=== PATIENT | female | born 1945 | race Caucasian/White ===

== ENCOUNTER 2022-12-02 09:25 | Outpatient (REF) | payer MEDICARE, SELFPAY ==
[2022-12-02 15:52] LABS: Alanine Aminotransferase 17 U/L (0-31); Albumin Level 3.9 g/dL (3.5-5.0); Alkaline Phosphatase 56 U/L (39-117); Anion Gap 16 (12-20); Aspartate Amino Transferase 12 U/L (5-31); Blood Urea Nitrogen 16 mg/dL (9-16); Calcium 9.6 mg/dL (8.4-10.2); Carbon Dioxide 24 mmol/L (22-29); Chloride 104 mmol/L (96-108); Cholesterol 188 mg/dL; Estimated Glomerular Filt Rate > 60; Glucose Fasting 94 mg/dL (60-99); HDL Cholesterol 43 mg/dL; LDL Cholesterol Calculated 100 mg/dl; Sodium 140 mmol/L (135-145); Total Protein 7.1 g/dL (6.5-8.0); Triglycerides 226 mg/dL
[2022-12-02 16:32] LABS: Bilirubin Direct 0.2 mg/dL (0.0-0.5); Bilirubin Total 0.7 mg/dL (0.0-1.0)
== END 2022-12-02 09:26 | disposition home or self-care (01) ==
LOC: HO.CHCLDS 09:25
PROVIDERS: Visit Provider Student in an Organized Health Care Education/Training Program
DX: Z00.00 Encounter for general adult medical examination without abnormal findings (principal); E11.9 Type 2 diabetes mellitus without complications
CPT/HCPCS: 36415; 80048; 80061; 80076

== ENCOUNTER 2023-06-15 14:19 | Outpatient (REF) | payer MEDICARE, SELFPAY ==
[2023-06-15 16:37] LABS: Appearance Urine Cloudy; Color Urine Yellow; Glucose Urine UA Negative (Negative); Leukocyte Esterase Urine Negative (Negative); Nitrite Urine Negative (Negative); Specific Gravity - Urine >= 1.030 (1.005-1.025); Urine Blood Negative (Negative); Urine Ketones Trace mg/dL (Negative); Urine Protein Trace mg/dL (Neg-Trace)
[2023-06-15 16:57] LABS: Bacteria Urine None Seen (None Seen); Calcium Oxalate Crystals Urine Present; Hyaline Casts Urine 0-2 /LPF (0-2); RBC Urine 0-2 /HPF (0-2); WBC Urine 0-5 /HPF (0-5)
== END 2023-06-15 14:20 | disposition home or self-care (01) ==
LOC: HO.CHCLNP 14:19
PROVIDERS: Visit Provider Family Medicine
DX: R35.0 Frequency of micturition (principal)
CPT/HCPCS: 81001

== ENCOUNTER 2023-09-06 16:15 | Outpatient (REF) | payer MEDICARE, SELFPAY | END 2023-09-06 16:16 | disposition home or self-care (01) | LOC: HO.CHCLNP 16:15 | PROVIDERS: Visit Provider Internal Medicine | DX: E11.9 Type 2 diabetes mellitus without complications (principal) | CPT/HCPCS: 87086 ==

== ENCOUNTER 2024-04-04 08:19 | Outpatient (REF) | payer MEDICARE, SELFPAY ==
[2024-04-04 14:28] LABS: Appearance Urine Clear; Color Urine Dark Yellow; Glucose Urine UA Negative (Negative); Leukocyte Esterase Urine Negative (Negative); Nitrite Urine Negative (Negative); Specific Gravity - Urine 1.025 (1.005-1.025); Urine Blood Negative (Negative); Urine Ketones Trace mg/dL (Negative); Urine Protein Negative (Neg-Trace)
[2024-04-04 14:37] LABS: Bacteria Urine None Seen (None Seen); Calcium Oxalate Crystals Urine Present; Squamous Epithelial Cell Urine 0-2 /HPF (0-2); WBC Urine 0-5 /HPF (0-5)
[2024-04-04 16:11] LABS: Alanine Aminotransferase 14 U/L (0-31); Albumin Level 3.9 g/dL (3.5-5.0); Alkaline Phosphatase 52 U/L (39-117); Anion Gap 11 (12-20); Aspartate Amino Transferase 19 U/L (5-31); Bilirubin Direct 0.1 mg/dL (0.0-0.5); Bilirubin Total 0.4 mg/dL (0.0-1.0); Blood Urea Nitrogen 14 mg/dL (9-16); Calcium 9.1 mg/dL (8.4-10.2); Carbon Dioxide 27 mmol/L (22-29); Chloride 105 mmol/L (96-108); Cholesterol 176 mg/dL (<200); Estimated Glomerular Filt Rate > 60; Glucose Random 96 mg/dL (60-115); HDL Cholesterol 44 mg/dL (>40); LDL Cholesterol Calculated 89 mg/dL (<100); Potassium 4.1 mmol/L (3.3-5.1); Sodium 139 mmol/L (135-145); Triglycerides 216 mg/dL (<150)
== END 2024-04-04 08:20 | disposition home or self-care (01) ==
LOC: HO.CHCLDS 08:19
PROVIDERS: Visit Provider Student in an Organized Health Care Education/Training Program
DX: N39.0 Urinary tract infection, site not specified (principal); E11.9 Type 2 diabetes mellitus without complications; I10 Essential (primary) hypertension
CPT/HCPCS: 36415; 80048; 80061; 80076; 81001

== ENCOUNTER 2025-05-21 11:13 | Outpatient (REF) | payer MEDICARE, SELFPAY ==
--- OUTSIDE RECORDS SUMMARY | 2025-05-21 10:45 | XMS_ITS | Encounter Summary ---
Author Organization [employer] Address [address] [place] [address] [place] [address] Care Team Providers Care Ruffling Machine Operator Name Role Phone Argelia Moore CNP Primary Care Provider [phone] Reason for Referral * Consultation (Routine) - Pending Review Specialty Diagnoses / Procedures Referred By Reginaldo modi Referred To Contact Cardiology Diagnoses Type 2 diabetes mellitus without complication, without long-term current use of insulin (HCC) Syncope and collapse Essential hypertension Hypertriglyceridemia Argelia Moore CNP [address] [place] [address] Phone: tel: fax: Referral ID Status Reason Start Date Expiration Date Visits Requested Visits Authorized [id number] Pending Review Specialty Services Required 5 05/21/2026 1 1 * Imaging (Routine) - Pending Review Specialty Diagnoses / Procedures Referred By Reginaldo modi Referred To Contact Cardiology Diagnoses Syncope and collapse Procedures Transthoracic Echo (TTE) Complete Argelia Moore CNP [address] [place] [address] Phone: tel: fax: [address] Phone: tel: fax: Referral ID Status Reason Start Date Expiration Date Visits Requested Visits Authorized [id number] Pending Review Perform Procedure 5 05/21/2026 1 1 Encounter Details Date Type Department Care Team (Late st Contact Info) Description 05/21/2025 10:45 AM EST Office Visit [facility] [address] [facility] [place] [address] Oscar Zeferinojenniferkathrine, AYDE [address] [place] [address] Angular cheilitis (Primary Dx); Type 2 diabetes mellitus without complication, without long-term current use of insulin (HCC); Syncope and collapse; Intertrigo; Essential hypertension; Hypertriglyceridemia Social History Tobacco Use Types Packs/Day Years Used Date Smoking Tobacco: Never Passive Smoke Exposure: Never Smokeless Tobacco: Never Alcohol Use Standard Drinks/Week Comments Never 0 (1 standard drink = 0.6 oz pur e alcohol) Depression Answer Date Recorded Patient Health Questionnaire-9 Score 0 07/17/2024 Patient Health Questionnaire-9 Score 0 07/17/2024 Last PHQ-9: Questionnaire Data Not on file 0 07/17/2024 Housing Stability Answer Date Recorded What is your housing situation today? I have le saunders 07/17/[address] you li ve. Do you have problems with any of the following? None of the above 07/17/2024 Food Insecurity Answer Date Recorded Within the past 12 months, y ou worried that your food would run out before you got money to buy more: Never True 07/17/2024 Within the past 12 months,th e food you bought just didn't last and you didn't have enough money to get more: Never True Transportation Answer Date Recorded In the past 12 months, has l ack of transportation kept you from medical appts, meetings, work or from getting things needed for daily living? No 07/17/2024 Utilities Answer Date Recorded In the past 12 months, has t he electric, gas, oil or water company threatened to shut off services in your home? No 07/17/2024 Depression Answer Date Recorded Patient Health Questionnaire-2 Score 0 07/17/2024 Internet Access Answer Date Recorded Internet Access Q1 Yes 07/17/2024 Internet Access Q2 Not on file 07/17/2024 Comments No Sex and Gender Information Value Date Recorded Sex Assigned at Female 03/21/2022 10:23 AM EDT Legal Sex Female 10:23 AM EDT Gender Identity Female 03/21/2022 10:23 AM EDT Sexual Orientation Straight 12/13/2022 10 :04 AM EDT documented as of this encounter Last Filed Vital Signs Vital Sign Reading Time Taken Comments Blood Pressure 152/86 05/21/2025 10:17 AM EST Pulse 90 05/21/2025 10:17 AM EST Temperature 36.7 C (98.1 F) 05/21/2025 10:17 AM EST Respiratory Rate 16 05/21/2025 10:17 AM EST Oxygen Saturation 96% 05/21/2025 10:17 AM EST Inhaled Oxygen Concentration - - Weight 65.3 kg (144 lb) 05/21/2025 10:17 AM EST Height 157.5 cm (5' 2 ) 05/21/2025 10:17 AM EST Body Mass Index 26.34 05/21/2025 10:17 AM EST documented in this encounter Progress Notes * Argelia Moore CNP - 05/21/2025 10:45 AM EST Subjective: Michelle Gray is a 80 y.o. 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 Previous PCP Alisa Thakur MD. Interim history: Had R knee surgery in September 2024 Had a fall a couple months ago, denies headstrike, she did have LOC- unsure of duration. No workup was completed, pt declined emergent evaluation. Current concerns: Lips dryness and inflammation x 2-3 weeks. Confirms history of Vit B12 deficiency, she takes daily supplement for this. She reports that she thinks something else is causing this as it is a new issue. She denies an open sores or mucosal involvement. Reports multiple brown spots on both upper extremities was told these were sun spots. She reports sometimes they are itchy, otherwise asymptomatic. She also reports some itching and some skin spots under her breasts. Problem List[1] Surgical History[2] Family History[3] Social History Living situation: has secure housing Diet/exercise: not reported Substance use: denies all substance use. Sexual activity: not reported Mental health: Patient Health Questionnaire-9 Score: 0 (07/17/2024 8:36 AM) Patient Health Questionnaire-2 Score: 0 (07/17/2024 8:36 AM) Thoughts that you would be better off or hurting yourself in some way: Not at all (07/17/2024 8:36 AM) No data recorded No LMP recorded. Patient is postmenopausal. Allergies[4] Review of Systems Vitals: 05/21/25 1017 BP: (!) 152/86 BP Location: Left arm Patient Position: Sitting BP Cuff Size: Adult Pulse: 90 Resp: 16 Temp: 98.1 ??F (36.7 ??C) TempSrc: Oral SpO2: 96% Weight: 144 lb (65.3 kg) Height: 5' 2 (1.575 m) Physical Exam Constitutional: Appearance: Normal appearance. She is normal weight. Cardiovascular: Rate and Rhythm: Normal rate and regular rhythm. Pulses: Normal pulses. Heart sounds: Normal heart sounds. No murmur heard. No friction rub. No gallop. Pulmonary: Effort: Pulmonary effort is normal. No respiratory distress. Breath sounds: Normal breath sounds. No wheezing or rales. Neurological: General: No focal deficit present. Mental Status: She is alert and oriented to person, place, and time. Psychiatric: Mood and Affect: Mood normal. Behavior: Behavior normal. Thought Content: Thought content normal. Judgment: Judgment normal. Assessment & Plan Type 2 diabetes mellitus without complication, without long-term current use of insulin ([facility]) Lab Results Component Value Date HGBA1C 5.7 05/21/2025 Disease course is stable without any episodes of hypoglycemia. Maintenance BMP: ordered Microalbumin: ordered Foot Exam: declined by pt Eye Exam: has appointment scheduled for May Lipid panel: ordered Statin: no ASA: yes NATALY/ARB: yes Treatment Goals: A1c goal: <7% FBG goal: <130 2 hour post prandial goal: <180 Advised Low sugar and Low carb diet. Counseled regarding self-monitoring of blood glucose. Counseled re: potential co-morbidities including cardiovascular disease. Counseled re: potential co-morbidities include neuropathy and retinopathy. Counseled re: potential co-morbidities include nephropathy. Orders: POCT A1c POCT glucose manually resulted ([id number]) Lipid Panel, Standard; Future Albumin, Random Urine W/Creatinine; Future CBC auto differential; Future Comprehensive Metabolic Panel; Future Alcohol Swabs (B-D SINGLE USE SWABS REGULAR) pads; USE ONE WIPE DIRECTED TWICE DAILY glucose blood (FREESTYLE LITE) test strip; Use to check blood sugar 1-2 times daily and when symptomatic. Referral to Cardiology; Future Angular cheilitis No mucosal involvement, open skin, or fissures Advised ample hydration and skin moisturization I will check serum levels for deficiencies. Orders: Vitamin B12/Folate, Serum Panel; Future Syncope and collapse Pt vitals are stable, no focal neurologic deficits. Last EKG pt had completed 08/2023: Sinus rhythm. Slight intraventricular conduction delay. Long QT interval. No acute ST-T changes. No Q wave. No recent syncope since first incident a couple months back. She has fell out of care with cardiology. I would like to update an echocardiogram and refer to cardiology for further evaluation of syncope. Orders: Transthoracic Echo (TTE) Complete; Future Referral to Cardiology; Future Intertrigo Orders: nystatin (Mycostatin) [id number] UNIT/GM powder; Apply topically 2 times daily. Essential hypertension Orders: Referral to Cardiology; Future Hypertriglyceridemia Orders: Referral to Cardiology; Future Routine Screening and Health Maintenance Optometry: Yes has appointment in May Dentist: Yes BMD: Last DEXA completed 06/2018 IMPRESSION: Modest decline in patient's bone mineral density since previous DEXA studies 01/25/2011 and 08/21/2007. Osteopenia within the range of that which is expected at patient's age. Fracture risk based upon these data calculated at 10.4% and 3.3% major osteoporotic and hip fracture with the next 10 years. ASCVD risk: 80 y.o. female Lab Review: orders written for new lab studies as appropriate; see orders Routine Cancer Screening Up to date Current Medications[5] Immunization History Administered Date(s) Administered Tdap 11/23/2022 No follow-ups on file. [1] Patient Active Problem List Diagnosis Type 2 diabetes mellitus without complication, without long-term current use of insulin (HCC) Hypertriglyceridemia Essential hypertension Mild intermittent asthma GERD (gastroesophageal reflux disease) Anxiety Cystocele affecting management of , antepartum Asthma Carcinoma in situ of breast Depression Stress incontinence in female Mixed stress and urge urinary incontinence Allergic rhinitis Cyst of nasal sinus Diaphragmatic hernia History of total right knee replacement (TKR) Low back pain Osteoarthritis of right knee Personal history of breast cancer Sensorineural hearing loss (SNHL) of both ears Tinnitus of left ear [2] Past Surgical History: Procedure Laterality Date WISDOM TOOTH EXTRACTION [3] No family history on file. [4] No Known Allergies [5] Current Outpatient Medications Medication Sig Dispense Refill Alcohol Swabs (B-D SINGLE USE SWABS REGULAR) pads USE ONE WIPE DIRECTED TWICE DAILY 100 each 0 aspirin 81 MG EC tablet Take 1 tablet (81 mg) by mouth in the morning. 90 tablet 1 cetirizine (ZyrTEC) 10 MG tablet TAKE 1 TABLET BY MOUTH EVERY MORNING 30 tablet 3 Colchicine 0.6 MG capsule Take 1 capsule by mouth at bed time. Diclofenac Sodium (Voltaren) 1 % gel Use topical BID 100 g 3 Diclofenac Sodium 1 % gel To apply to the affected area 3 times a day 100 g 1 gabapentin (Neurontin) 100 MG capsule Take 1 capsule by mouth 2 times daily. gemfibrozil (Lopid) 600 MG tablet Take 1 tablet (600 mg) by mouth Once per day. 90 tablet 3 glucose blood (FREESTYLE LITE) test strip Use to check blood sugar 1-2 times daily and when symptomatic. 100 each 11 hydrOXYzine pamoate (Vistaril) 25 MG capsule Take 1 capsule by mouth every 8 (eight) hours. ibuprofen 200 MG tablet Take 1 tablet by mouth every 8 (eight) hours. ipratropium-albuterol (Duo-Neb) 0.5-2.5 mg/3 mL nebulizer solution USE ONE VIAL THREE TIMES DAILY FOR 30 DAYS meclizine (Antivert) 25 MG tablet TAKE 1 TABLET BY MOUTH TWICE DAILY 60 tablet 3 meloxicam (Mobic) 7.5 MG tablet Take 1 tablet (7.5 mg) by mouth 2 times daily. 60 tablet 11 nitroglycerin (Nitrostat) 0.4 MG SL tablet take 1 Tablet by Sublingual route every 5 minutes as needed for chest pain If no relief, go to ER pantoprazole (ProtoNix) 40 MG EC tablet TAKE 1 TABLET(40 MG) BY MOUTH BEFORE BREAKFAST 30 tablet 1 valsartan (Diovan) 80 MG tablet TAKE 1 TABLET BY MOUTH EVERY DAY EVERY MORNING 30 tablet 11 valsartan (Diovan) 80 MG tablet TAKE 1 TABLET BY MOUTH EVERY DAY EVERY MORNING 30 tablet 11 verapamil SR (Calan SR) 120 MG ER tablet TAKE 1 TABLET BY MOUTH AT BEDTIME. DO NOT CRUSH OR CHEW. 30 tablet 1 No current facility-administered medications for this visit. documented in this encounter Miscellaneous Notes * Assessment & Plan Note - Argelia Moore CNP - 05/21/2025 10:45 AM EST Associated Problem(s): Type 2 diabetes mellitus without complication, without long-term current useof insulin (HCC) Lab Results Component Value Date HGBA1C 5.7 05/21/2025 Disease course is stable without any episodes of hypoglycemia. Maintenance BMP: ordered Microalbumin: ordered Foot Exam: declined by pt Eye Exam: has appointment scheduled for May Lipid panel: ordered Statin: no ASA: yes NATALY/ARB: yes Treatment Goals: A1c goal: <7% FBG goal: <130 2 hour post prandial goal: <180 Advised Low sugar and Low carb diet. Counseled regarding self-monitoring of blood glucose. Counseled re: potential co-morbidities including cardiovascular disease. Counseled re: potential co-morbidities include neuropathy and retinopathy. Counseled re: potential co-morbidities include nephropathy. Orders: POCT A1c POCT glucose manually resulted ([id number]) Lipid Panel, Standard; Future Albumin, Random Urine W/Creatinine; Future CBC auto differential; Future Comprehensive Metabolic Panel; Future Alcohol Swabs (B-D SINGLE USE SWABS REGULAR) pads; USE ONE WIPE DIRECTED TWICE DAILY glucose blood (FREESTYLE LITE) test strip; Use to check blood sugar 1-2 times daily and when symptomatic. Referral to Cardiology; Future * Assessment & Plan Note - Argelia Moore CNP - 05/21/2025 10:45 AM EST Associated Problem(s): Essential hypertension Orders: Referral to Cardiology; Future * Assessment & Plan Note - Argelia Moore CNP - 05/21/2025 10:45 AM EST Associated Problem(s): Hypertriglyceridemia Orders: Referral to Cardiology; Future documented in this encounter Plan of Treatment Scheduled Orders Name Type Priority Associated Diagnoses Order Schedule Lipid Panel, Standard Lab Routine Type 2 diabetes mellitus without complication, without long-term current use of insulin (HCC) Expected: 05/21/2025 (Approximate), Expires: 05/21/2026 Albumin, Random Urine W/Creatinine Lab Routine Type 2 diabetes mellitus without complication, without long-term current use of insulin (HCC) Expected: 05/21/2025 (Approximate), Expires: 05/21/2026 CBC auto differential Lab Routine Type 2 diabetes mellitus without complication, without long-term current use of insulin (HCC) Expected: 05/21/2025 (Approximate), Expires: 05/21/2026 Comprehensive Metabolic Panel Lab Routine Type 2 diabetes mellitus without complication, without long-term current use of insulin (HCC) Expected: 05/21/2025 (Approximate), Expires: 05/21/2026 Vitamin B12/Folate, Serum Panel Lab Routine Angular cheilitis Expected: 05/21/2025, Expires: 05/21/2026 Transthoracic Echo (TTE) Complete Echocardiography Routine Syncope and collapse Expected: 05/21/2025 (Approximate), Expires: 05/21/2027 Scheduled Referrals Name Type Priority Associated Diagnoses Order Schedule Referral to Cardiology Outpatient Referral Routine Type 2 diabetes mellitus without complication, without long-term current use of insulin (HCC) Syncope and collapse Essential hypertension Hypertriglyceridemi a Expected: 05/21/2025 (Approximate), Expires: 05/21/2026 documented as of this encounter Procedures Procedure Name Priority Date/Time Associated Diagnosis Comments POCT GLYCATED HEMOGLOBIN, TOTAL Routine 05/21/2025 10:22 AM EST Type 2 diabetes mellitus without complication, without long-term current use of insulin (HCC) POCT GLUCOSE (CPT-[id number]) Routine 05/21/2025 10:21 AM EST Type 2 diabetes mellitus without complication, without long-term current use of insulin (HCC) documented in this encounter Results * POCT A1c (05/21/2025 10:22 AM EST) Hemoglobin A1C 5.7 4.0 - 5.7 % QC Media Lot # Comment:[id number] Lot# Expiration Date Comment:04/25/2027 Blood 05/21/2025 10:2 2 AM EST [facility] POINT OF CARE TEST ENTER/ EDIT ORDERABLES Final Result * POCT glucose manually resulted (CPT-[id number]) (05/21/2025 10:21 AM EST) Glucose Blood, POC 92 60 - 200 mg/dL QC Media Lot # Comment:[id number] Lot# Expiration Date Comment:08/26/2025 Blood Capillary blood specimen / Unknown 05/21/2025 10:21 AM EST [facility] POINT OF CARE TEST ENTER/ EDIT ORDERABLES Final Result documented in this encounter Visit Diagnoses Diagnosis Angular cheilitis- Primary Diseases of lips Type 2 diabetes mellitus without complication, without long-term current use of insulin (HCC) Syncope and collapse Intertrigo Other specified erythematous condition Essential hypertension Unspecified essential hypertension Hypertriglyceridemia Pure hyperglyceridemia documented in this encounter Additional Health Concerns Assessment Noted Time PHQ-9 Depression Total Score: 0 07/17/19 25 8:36 AM EST documented as of this encounter Care Teams Ruffling Machine Operator Relationship Specialty Start Date End Date Argelia Moore CNP [address] [place] [id number] PCP - General Family Medicine 02/07/25 documented as of this encounter
--- OUTSIDE RECORDS SUMMARY | 2025-05-21 12:47 | XMS_ITS | Encounter Summary ---
Author Organization [employer] Address [address] [place] [address] 7[address] [place] [address] Care Team Providers Care Silver Designer Name Role Phone Alisa Thakur MD Primary Care Provider [phone] Argelia Moore CNP Primary Care Provider [phone] Reason for Visit * Reason Onset Date Comments ER Follow-up 09/15/2023 Encounter Details Date Type Department Care Team ([facility] st Contact Info) Description 09/15/[address] [facility] MED & PEDS [address] [place], [place] [id number] Alisa Thakur MD [address] [place] [address] ER Follow-up Social History Tobacco Use Types Packs/Day Years Used Date Smoking Tobacco: Never Passive Smoke Exposure: Never Smokeless Tobacco: Never Alcohol Use Standard Drinks/Week Comments Never 0 (1 standard drink = 0.6 oz pur e alcohol) Housing Stability Answer Date Recorded What is your housing situation today? I have le saunders 06/28/[address] you li ve. Do you have problems with any of the following? None of the above 06/28/2023 Food Insecurity Answer Date Recorded Within the past 12 months, y ou worried that your food would run out before you got money to buy more: Never True 06/28/2023 Within the past 12 months,th e food you bought just didn't last and you didn't have enough money to get more: Never True 11/2023 Transportation Answer Date Recorded In the past 12 months, has l ack of transportation kept you from medical appts, meetings, work or from getting things needed for daily living? No 06/28/2023 Utilities Answer Date Recorded In the past 12 months, has t he electric, gas, oil or water company threatened to shut off services in your home? No 06/28/2023 Depression Answer Date Recorded Patient Health Questionnaire-2 Score 2 04/25/2022 Comments No Sex and Gender Information Value Date Recorded Sex Assigned at Female 03/21/2022 10:23 AM EDT Legal Sex Female 10:23 AM EDT Gender Identity Female 03/21/2022 10:23 AM EDT Sexual Orientation Straight 12/13/2022 10 :04 AM EDT documented as of this encounter Miscellaneous Notes * Telephone Encounter - Wing Stefani RN - 09/15/2023 3:26 PM EDT Scheduled pt for 10/05 at 9:30 am with PCP for HDF f/u as pt was admitted into [facility]. Already documented in message chain regarding lab results. * Telephone Encounter - Vianney Wiley - 09/15/2023 12:04 PM EDT Patient calling to report ED visit on : Date: 09/12/23 [place] [facility] [place] Seen for: chest pain and shortness of breath Patient advised will forward to team nurse for follow up documented in this encounter Plan of Treatment Not on file documented as of this encounter Visit Diagnoses Not on filedocumented in this encounter Care Teams Silver Designer Relationship Specialty Start Date End Date Alisa Thakur MD [address] [place] [id number] PCP - General Family Medicine 12/07/16 02/06/25 Argelia Moore CNP [address] [place] [id number] PCP - General Family Medicine 02/07/25 documented as of this encounter
--- OUTSIDE RECORDS SUMMARY | 2025-05-21 12:47 | XMS_ITS | Encounter Summary ---
Author Organization [employer] Address [address] [place] [address] 7[address] [place] [address] Care Team Providers Care Refractory Products Supervisor Name Role Phone Alisa Thakur MD Primary Care Provider [phone] Argelia Moore CNP Primary Care Provider [phone] Reason for Visit * Reason Comments Med Refill Encounter Details Date Type Department Care Team ([facility] st Contact Info) Description 08/07/2023 Refill [facility] [address] [place], [place] [phone] Alisa Thakur MD [address] [place] [address] Essential hypertension Social History Tobacco Use Types Packs/Day Years [...] AM EDT documented as of this encounter Plan of Treatment Not on file documented as of this encounter Visit Diagnoses Diagnosis Essential hypertension Unspecified essential hypertension documented in this encounter Care Teams Refractory Products Supervisor Relationship Specialty Start Date End Date Alisa Thakur MD [address] [place] [id number] PCP - General Family Medicine 12/07/16 02/06/25 Argelia Moore CNP [address] [place] [id number] PCP - General Family Medicine 02/07/25 documented as of this encounter
--- OUTSIDE RECORDS SUMMARY | 2025-05-21 12:47 | XMS_ITS | Encounter Summary ---
Author Organization [employer] Address [address] [place] [address] 7t [place] [address] Care Team Providers Care Foundry Finisher Name Role Phone Alisa Thakur MD Primary Care Provider [phone] Argelia Moore CNP Primary Care Provider [phone] Encounter Details Date Type Department Care Team ([facility] st Contact Info) Description 05/09/2024 Orders Only [facility] [address] [place] [address] ProviderHortensia MD Social History Tobacco Use Types Packs/Day Years [...] on file documented as of this encounter Procedures Procedure Name Priority Date/Time Associated Diagnosis Comments CT ABDOMEN PELVIS WO CONTRAST Routine 05/08/2024 3:56 PM EST documented in this encounter Results * CT Abdomen Pelvis w/o Contrast (05/08/2024 3:56 PM EST) Anatomical Region Laterality Modality Body, Pelvis, Abdomen Computed T omography us Historical Provider MD [facility] CT PROCEDURES Final R esult documented in this encounter Visit Diagnoses Not on filedocumented in this encounter Care Teams Foundry Finisher Relationship Specialty Start Date End Date Alisa Thakur MD [address] [place] [id number] PCP - General Family Medicine 12/07/16 02/06/25 Argelia Moore CNP [address] [place] [id number] PCP - General Family Medicine 02/07/25 documented as of this encounter
--- OUTSIDE RECORDS SUMMARY | 2025-05-21 12:47 | XMS_ITS | Continuity of Care Document ---
Author Name [employer] Address [address] [place] [address] Organization Unknown Address [address] [place] [address] Medications No known medications Problems No known problems
--- OUTSIDE RECORDS SUMMARY | 2025-05-21 12:47 | XMS_ITS | Encounter Summary ---
Author Organization [employer] Address [address] [facility] 7t [place] [address] Care Team Providers Care Script Coordinator Name Role Phone Alisa Thakur MD Primary Care Provider [phone] Argelia Moore CNP Primary Care Provider [phone] Reason for Visit * Reason Onset Date Comments Durable Medical Equipment 06/06/2023 Encounter Details Date Type Department Care Team ([facility] st Contact Info) Description 06/06/2023 Telephone [facility] MEDICINE [address] [place] [address] Alisa Thakur MD [address] [place], [place] [id number] Durable Medical Equipment Social History Tobacco Use Types Packs/Day Years Used Date Smoking Tobacco: Never Passive Smoke Exposure: Never Smokeless Tobacco: Never Alcohol Use Standard Drinks/Week Comments Never 0 (1 standard drink = 0.6 oz pur e alcohol) Housing Stability Answer Date Recorded What is your housing situation today? I have housing today, but I am worried about losing housing in the future 03/07/[address] you li ve. Do you have problems with any of the following? None of the above 03/07/2023 Food Insecurity Answer Date Recorded Within the past 12 months, y ou worried that your food would run out before you got money to buy more: Never True 03/07/2023 Within the past 12 months,th e food you bought just didn't last and you didn't have enough money to get more: Never True Transportation Answer Date Recorded In the past 12 months, has l ack of transportation kept you from medical appts, meetings, work or from getting things needed for daily living? No 03/07/2023 Utilities Answer Date Recorded In the past 12 months, has t he electric, gas, oil or water company threatened to shut off services in your home? No 03/07/2023 Depression Answer Date Recorded Patient Health Questionnaire-2 Score 2 04/25/2022 Comments Unknown Sex and Gender Information Value Date Recorded Sex Assigned at Female 03/21/2022 10:23 AM EDT Legal Sex Female 10:23 AM EDT Gender Identity Female 03/21/2022 10:23 AM EDT Sexual Orientation Straight 12/13/2022 10 :04 AM EDT documented as of this encounter Miscellaneous Notes * Telephone Encounter - Makayla Whitt LPN - 06/07/2023 12:01 PM EST Please review message below and advise . Please provide DX for request . Thank you * Telephone Encounter - Opal Hyatt - 06/06/2023 2:11 PM EST Tc from [employer] requesting DME -Wipes 4 pkg a month -Gloves 2 boxes a month -Pads 4 a day Fax to [facility] [phone] documented in this encounter Plan of Treatment Not on file documented as of this encounter Visit Diagnoses Not on filedocumented in this encounter Care Teams Script Coordinator Relationship Specialty Start Date End Date Alisa Thakur MD [address] [place] [address] PCP - General Family Medicine 12/07/16 02/06/25 Argelia Moore CNP [address] [place] [address] PCP - General Family Medicine 02/07/25 documented as of this encounter
--- OUTSIDE RECORDS SUMMARY | 2025-05-21 12:47 | XMS_ITS | Encounter Summary ---
Author Organization [employer] Address [address] [facility] 7t [place] [address] Care Team Providers Care Summer Intern Name Role Phone Alisa Thakur MD Primary Care Provider [phone] Argelia Moore CNP Primary Care Provider [phone] Encounter Details Date Type Department Care Team ([facility] st Contact Info) Description 04/05/2023 Telephone [facility] MEDICINE [address] [place] [address] Alisa Thakur MD [address] [place] [address] Social History Tobacco Use Types Packs/Day Years [...] encounter Miscellaneous Notes * Telephone Encounter - Faye Wheeler RN - 04/05/2023 11:50 AM EST Please review message below and advise if CT order can be adjusted to CT ABD and pelvis with IV contrast * Telephone Encounter - Opal Hyatt - 04/05/2023 11:43 AM EST Tc from Julia with [facility] requesting correction on Imaging CT abdomen w/o contrast, [facility] states need to say: Ct abdomen and pelvis with IV documented in this encounter Plan of Treatment Not on file documented as of this encounter Visit Diagnoses Not on filedocumented in this encounter Care Teams Summer Intern Relationship Specialty Start Date End Date Alisa Thakur MD [address] [place] [address] PCP - General Family Medicine 12/07/16 02/06/25 Argelia Moore CNP [address] [place] [address] PCP - General Family Medicine 02/07/25 documented as of this encounter
--- OUTSIDE RECORDS SUMMARY | 2025-05-21 12:47 | XMS_ITS | Encounter Summary ---
Author Organization [employer] Address [address] [facility] 7t [place] [address] Care Team Providers Care Basket Patcher Name Role Phone Alisa Thakur MD Primary Care Provider [phone] Argelia Moore CNP Primary Care Provider [phone] Reason for Visit * Reason Onset Date Comments Medication Question 01/30/2024 Encounter Details Date Type Department Care Team ([facility] st Contact Info) Description 01/30/2024 Telephone [facility] MEDICINE [address] [place] [address] Alisa Thakur MD [address] [place] [address] Medication Question Social History Tobacco Use Types Packs/Day Years [...] encounter Miscellaneous Notes * Telephone Encounter - Hilario Zay - 01/30/2024 3:55 PM EDT Tc from pt calling in regards to lidocain patches stating it was discussed during last OV but has not received any update on medication. Please contact pt at [phone]. (Khmer Speaker) documented in this encounter Plan of Treatment Not on file documented as of this encounter Visit Diagnoses Not on filedocumented in this encounter Care Teams Basket Patcher Relationship Specialty Start Date End Date Alisa Thakur MD [address] [place] [address] PCP - General Family Medicine 12/07/16 02/06/25 Argelia Moore CNP [address] [place] [address] PCP - General Family Medicine 02/07/25 documented as of this encounter
--- OUTSIDE RECORDS SUMMARY | 2025-05-21 12:47 | XMS_ITS | Encounter Summary ---
Author Organization [employer] Address [address] [facility] 7t [place] [address] Care Team Providers Care Sequins Stringer Name Role Phone Alisa Thakur MD Primary Care Provider [phone] Argelia Moore CNP Primary Care Provider [phone] Encounter Details Date Type Department Care Team ([facility] st Contact Info) Description 06/13/[address] [facility] CHC MED & PEDS [address] [place], [place] [phone] Alisa Thakur MD [address] [place] [address] Social History Tobacco Use Types Packs/Day Years [...] on filedocumented in this encounter Care Teams Sequins Stringer Relationship Specialty Start Date End Date Alisa Thakur MD [address] [place] [address] PCP - General Family Medicine 12/07/16 02/06/25 Argelia Moore CNP [address] [place] [address] PCP - General Family Medicine 02/07/25 documented as of this encounter
--- OUTSIDE RECORDS SUMMARY | 2025-05-21 12:47 | XMS_ITS | Encounter Summary ---
Author Organization [employer] Address [address] [facility] 7t [place] [address] Care Team Providers Care Physician Extender Name Role Phone Alisa Thakur MD Primary Care Provider [phone] Argelia Moore CNP Primary Care Provider [phone] Reason for Visit * Reason Onset Date Comments Results 09/13/2023 Encounter Details Date Type Department Care Team ([facility] st Contact Info) Description 09/13/2023 Telephone [facility] MEDICINE [address] [place] [address] Alisa Thakur MD [address] [place] [address] Results Social History Tobacco Use Types Packs/Day Years [...] Encounter - Wing Stefani RN - 09/15/2023 3:10 PM EDT Tc to pt regarding results, used [facility] [place], [place] [id number]. Pt stated that she already got results but needed an ED follow-up after going to [facility] for shortness of breath. Reports shortness of breath several times a week and comes at random occasions. Scheduled pt for said follow-up with PCP as that is who pt wants to see. However read [facility] note which said pt was admitted to [facility], called pt again with [employer] [place], [place] [id number]. Explained reason for rescheduled to30 min visit and scheduled pt for 10/05 at 9:30 am with PCP. Pt verbalized understanding and agreement with plan. * Telephone Encounter - Opal Hyatt - 09/13/2023 3:46 PM EDT Tc from pt requesting a call back with results from 09/05 documented in this encounter Plan of Treatment Not on file documented as of this encounter Visit Diagnoses Not on filedocumented in this encounter Care Teams Physician Extender Relationship Specialty Start Date End Date Alisa Thakur MD [address] [place] [address] PCP - General Family Medicine 12/07/16 02/06/25 Argelia Moore CNP [address] [place] [address] PCP - General Family Medicine 02/07/25 documented as of this encounter
--- OUTSIDE RECORDS SUMMARY | 2025-05-21 12:47 | XMS_ITS | Encounter Summary ---
Author Organization [email or web address] Address [address] [place] [address] 7t [place] [address] Care Team Providers Care Slot Key Person Name Role Phone Alisa Thakur MD Primary Care Provider [phone] Argelia Moore CNP Primary Care Provider [phone] Reason for Visit * Reason Comments Med Refill Encounter Details Date Type Department Care Team ([facility] st Contact Info) Description 03/07/2024 Refill [facility] CH[facility] MED & PEDS [address] [place], [place] [phone] Alisa Thakur MD [address] [place] [address] Social History Tobacco Use Types Packs/Day Years [...] on filedocumented in this encounter Care Teams Slot Key Person Relationship Specialty Start Date End Date Alisa Thakur MD [address] [place] [address] PCP - General Family Medicine 12/07/16 02/06/25 Argelia Moore CNP [address] [place] [address] PCP - General Family Medicine 02/07/25 documented as of this encounter
--- OUTSIDE RECORDS SUMMARY | 2025-05-21 12:47 | XMS_ITS | Encounter Summary ---
Author Organization [employer] Address [address] [facility] 7t [place] [address] Care Team Providers Care Log Truck Driver Name Role Phone Alisa Thakur MD Primary Care Provider [phone] Argelia Moore CNP Primary Care Provider [phone] Reason for Visit * Reason Onset Date Comments Results 06/18/2024 Encounter Details Date Type Department Care Team ([facility] st Contact Info) Description 06/18/2024 Telephone [facility] MEDICINE [address] [place] [address] Alisa Thakur MD [address] [place] [address] Results Social History Tobacco Use Types Packs/Day [...] encounter Miscellaneous Notes * Telephone Encounter - Jose R Ulrich - 06/18/2024 3:30 PM EST TC from pt requesting call back regarding Results. Type of results: Blood test Date when done: 04/01 Facility: [facility] Pt requesting for them to send the results through Mail to her. documented in this encounter Plan of Treatment Not on file documented as of this encounter Visit Diagnoses Not on filedocumented in this encounter Care Teams Log Truck Driver Relationship Specialty Start Date End Date Alisa Thakur MD [address] [place] [address] PCP - General Family Medicine 12/07/16 02/06/25 Argelia Moore CNP [address] [place] [address] PCP - General Family Medicine 02/07/25 documented as of this encounter
--- OUTSIDE RECORDS SUMMARY | 2025-05-21 12:47 | XMS_ITS | Encounter Summary ---
Author Organization [employer] Address [address] [facility] 7t [place] [address] Care Team Providers Care Intelligence Director Name Role Phone Alisa Thakur MD Primary Care Provider [phone] Argelia Moore CNP Primary Care Provider [phone] Encounter Details Date Type Department Care Team ([facility] st Contact Info) Description 10/02/2023 Orders Only [facility] CHC MED & PEDS [address] [place], [place] [phone] ProviderHortensia MD Social History Tobacco Use Types [...] Date/Time Associated Diagnosis Comments CT ABDOMEN PELVIS W CONTRAST Routine 09/29/2023 4:18 PM EDT documented in this encounter Results * CT Abdomen Pelvis w/ Contrast (09/29/2023 4:18 PM EDT) Anatomical Region Laterality Modality Body, Pelvis, Abdomen Computed T omography Historical Provider MD [facility]U CT PROCEDURES Final R esult documented in this encounter Visit Diagnoses Not on filedocumented in this encounter Care Teams Intelligence Director Relationship Specialty Start Date End Date Alisa Thakur MD [address] [place] [address] PCP - General Family Medicine 12/07/16 02/06/25 Argelia Moore CNP [address] [place] [address] PCP - General Family Medicine 02/07/25 documented as of this encounter
--- OUTSIDE RECORDS SUMMARY | 2025-05-21 12:47 | XMS_ITS | Data Portability ---
Author Organization [place] - [facility], Allergy Address [address] [place] [address] Care Team Providers Care Nurse'S Assistant Name Role Phone JENNIFERXIOMY Primary Care Provider Assessment Encounter Date Assessment Date Assessment LastModified by Organization Details LastModified Time 05/02/2024 05/02/2024 79-year-old female presents for evaluation of intermittent left otalgia and tinnitus. Physical exam reveals no identifiable source of otalgia involving the auricle, external auditory canal, or tympanic membrane. Examination was positive for tenderness of the jaw joint and sean-TMJ musculature bilaterally. Audiometry demonstrated normal sloping to severe SNHL with normal tympanometry. The patient's auricular discomfort is most likely consistent with intermittent inflammation of the jaw joint or spasm of the surrounding musculature. I recommended the patient use light massage, warm compresses and anti-inflammato sharifa for symptomatic management. Stressed chewing evenly on both sides of the mouth to keep from overworking the jaw joint. Use soft food diet as needed. Jaw Joint Program information sheet was shared. Patient is medically cleared for amplification. We discussed the benefits of hearing aids and that they may help mask her tinnitus.She will pursue a hearing aid consult. Recommend annual follow up with repeat audiometric testing, or sooner with any concerns. [email or web address] Not available 05/02/2024 12:10:32 Plan of Treatment Reminders Order Date Submit Date Provider Last Modified By Organization Details Last Modified Time Details Appointments None record ed. Lab None record ed. Referral None record ed. Procedures None record ed. Surgeries None record ed. Imaging None record ed. Medication Orders None record ed. Patient TargetsNo targets recorded. Patient InstructionsNo instructions recorded. Reason for Referral None Reported. Results Created Date Observation Date Name Description Value Unit Range Abnormal Flag Note LastModifiedBy Organization Detail LastModifiedTime 05/03/20 24 audio gram No observ ation record ed. BARCODE Not Available 2023 09:38:47 Result Notes None recorded. Problems Name Problem SNOMED Code Status Onset Date Resolution Date Notes Provider Name and Address Organization Details Recorded Time Posterior rhinorrhe a 57997059 Active 2018 Postnasal drip; Note: Date Diagnosed : 02/18/2019 1:17 PM (R09.82) Not Available [facility] 4 02:50:50 Gastroeso phageal reflux disease without esophagit is 525766485 Active 2018 Gastro-es ophageal reflux disease without esophagit is; Note: Date Diagnosed : 02/18/2019 1:17 PM (K21.9) Not Available [facility] 4 02:50:52 Diaphragm atic hernia 65092198 Active 2018 Diaphragm atic hernia without obstructi on or gangrene; Note: Date Diagnosed : 02/18/2019 1:19 PM (K44.9) Not Available [facility] 4 02:50:52 Allergic rhinitis 67275176 Active 2018 Allergic rhinitis: Due to other allergen; Note: Date Diagnosed : 9 10:44 AM (477.8) Other allergic rhinitis; Note: Date Diagnosed : 02/18/2019 1:17 PM (J30.89) ; Start Date : 9 Not Available [facility] 4 02:50:52 Cyst of nasal sinus 81665170 Active 2023 Cyst and mucocele of nose and nasal sinus; Note: Date Diagnosed : 08/22/2023 11:03 AM (J34.1) Not Available [facility] 4 02:50:49 Sensorine ural hearing loss of bilateral ears 238747004 Active 2023 VIOLET REN [address] [address], [facility] [place], [address] , [facility] - [facility] 4 11:28:13 Tinnitus of left ear 50977802622 06 Active 2023 ALINA JEAN PA-C [address] [facility] [address], [place], [address] , [facility] - [facility] 4 12:10:29 Referred otalgia of left ear [id number] 76595 Active 2023 ALINA JEAN PA-C 100 [facility], [place], [address] , [facility] 4 12:10:38 Problem Notes None recorded. Procedures Surgical History Date Name Laterality Status Provider Name and Address Organization Details Recorded Time Comp Audio with Tymps - 48638 & 61533 completed VIOLET REN [address] [facility],[address] [address], [place], [address], [facility] 05/02/2024 11:28:07 extraction of wisdom tooth completed Meliza Braun [facility] 05/02/2024 10:44:48 Imaging Results None recorded. Procedure Notes None recorded. Medical Equipment None Reported. Allergies No known drug allergies Medications Name Sig Start Date Stop Date Status Note LastModified by Organization Details LastModified Time verapamil ER (SR) 120 mg tablet,ex tended release TAKE 1 TABLET BY MOUTH DAILY AT BEDTIME. DO NOT CRUSH OR CHEW active Not Available Not Available No t Available ipratropi um 0.5 mg-albute rol 3 mg (2.5 mg base)/3 mL nebulizat ion soln USE ONE VIAL THREE TIMES DAILY FOR 30 DAYS active Not Available Not Available No t Available tizanidin e 2 mg tablet active Not Available Not Available Not Available cetirizin e 10 mg tablet TAKE 1 TABLET BY MOUTH EVERY MORNING active Not Available Not Available No t Available valsartan 80 mg tablet TAKE 1 TABLET BY MOUTH EVERY DAY EVERY MORNING active Not Available Not Available No t Available meclizine 25 mg tablet TAKE 1 TABLET BY MOUTH TWICE DAILY active Not Available Not Available No t Available gemfibroz il 600 mg tablet active Not Available Not Available Not Available pantopraz ole 40 mg tablet,de layed release active Not Available Not Available Not Available lidocaine 5 % topical patch APPLY 1 PATCH ONTO THE SKIN DAILY FOR 12 HOURS active Not Available Not Available No t Available omeprazol e 20 mg capsule,d elayed release 08/21 completed Medicati on ID: [id number] D uration Value: 30 Brand Name: omeprazo le Send Method: E-Prescr ibed Sub s Allowed: subs LOLA Speci al Instruct ion: TK ONE C PO QD BEFORE A MEAL Med icationG enericNa me: omeprazo le Not Available Not Available Not Available pseudoeph edrine 30 mg tablet active Not Available Not Available No t Available gabapenti n 100 mg capsule TAKE 1 CAPSULE BY MOUTH TWICE DAILY active Not Available Not Available No t Available albuterol sulfate HFA 90 mcg/actua tion aerosol inhaler INHALE 2 PUFFS BY MOUTH EVERY 4 TO 6 HOURS FOR 1 WEEK NEEDED FOR SHORTNES S OF BREATH OR WHEEZING active Not Available Not Available No t Available fluticaso ne propionat e 50 mcg/actua tion nasal spray,dawna pension 08/21 completed Medicati on ID: [id number] D uration Value: 60 Brand Name: fluticas one propiona te Send Method: E-Prescr ibed Sub s Allowed: subs OK Speci al Instruct ion: INT 1 TO 2 SPRAYS IN EACH NOSTIL QD PRN Medi cationGe nericNam e: fluticas one propiona te Not Available Not Available Not Available naproxen 500 mg tablet 08/21 completed Medicati on ID: [id number] D uration Value: 30 Brand Name: naproxen Send Method: E-Prescr ibed Sub s Allowed: subs OK Speci al Instruct ion: TK 1 T PO BID WITH FOOD Med [facility] enericNa me: naproxen Not Available Not Available Not Available amoxicill in 875 mg-potass ium clavulana te 125 mg tablet TAKE 1 TABLET BY MOUTH TWICE DAILY active Not Available Not Available No t Available ciproflox acin 0.3 %-dexamet hasone 0.1 % ear drops,dawna pension SHAKE LIQUID AND INSTILL 4 DROPS TO AFFECTED EAR TWICE DAILY FOR 7 DAYS active Not Available Not Available No t Available Alcohol Prep Pads USE DIRECTED TWICE DAILY active Not Available Not Available No t Available nitrofura ntoin monohydra te/macroc rystals 100 mg capsule active Not Available Not Available Not Available Flovent HFA 110 mcg/actua tion aerosol inhaler 08/21 completed Medicati on ID: [id number] D uration Value: 60 Brand Name: Flovent HFA Send Method: E-Prescr ibed Sub s Allowed: subs OK Speci al Instruct ion: INL 1 PUFF INTO THE LUNGS BID Medi cationGe nericNam e: Flovent HFA Not Available Not Available Not Available ProAir HFA 08/21 completed Medicati on ID: [id number] D uration Value: 16 Brand Name: ProAir HFA Send Method: E-Prescr ibed Sub s Allowed: subs OK Speci al Instruct ion: INHALE 2 PUFFS PO Q 4 TO 6 H PRN Medi cationGe nericNam e: ProAir HFA Not Available Not Available Not Available FreeStyle Lite Strips USE TO CHECK BLOOD SUGAR 1 TO 2 TIMES DAILY AND WHEN SYMPTOMA TIC active Not Available Not Available No t Available diclofena c 1 % topical gel APPLY 2 GRAMS TOPICALL Y TO THE AFFECTED AREA FOUR TIMES DAILY active Not Available Not Available No t Available GaviLyte- G 236 gram-22.7 4 gram-6.74 gram-5.86 gram oral solution MIX AND DRINK DIRECTED active Not Available Not Available No t Available Vitals Date Recorded Body height Body weight Provider Name and Address Organization Details Last Updated DateTime 05/02/2024 170.18 cm 67735.04 g Meliza Braun [place] - [facility] 05/02/2024 10:45:57 Social History None recorded. Functional Status None recorded. Mental Status None recorded. Family History Nothing Reported. Medical History Condition Response Diabetes Y Cancer Y Arthritis Y Hypertension Y Gynecological HistoryNo gynecological history recorded. Obstetrics History GPAL:G 0 P 0 0 0 0 Past Encounters Encounter ID Performer Location Encounter Start Date Encounter Closed Date Diagnosis/Indication Diagnosis SNOMED-CT Code Diagnosis ICD10 Code Diagnosis IMO Codes Diagnosis Note [id number] ALINA JEAN PA-C [facility] [address] [address] 05/02/2024 10:33:32 05/02/2024 12:03:56 Sensorineural hearing loss of bilateral ears 975169643 H90.3 Audiologic al evaluation results: Right ear: Normal sloping to severe sensorineu ral hearing loss with good word recognitio n. Left ear: Normal sloping to severe sensorineu ral hearing loss with good word recognitio n. Tympanomet ry: Right Ear:Type A Left Ear:Type A Tinnitus of left ear 120 4805161 106 H93.12 Referred o talgia of left ear 1214538347 308331 H92.02 Health Concerns Section Related Observation LastModified by Organization Detai ls LastModified Time None Recorded Concern Status LastModified by Organization Details LastModified Time None Recorded Advance Directives Directive None Recorded Payers Insurance Date Sequence Insurance Name Policy Number Policy Trammell Covered Member ID Trammell Member ID Guarantor Name 05/02/2024 1 [facility] - DOS ON OR AFTER 2022 - ONE CARE (MEDICARE REPLACEMENT/ADV ANTAGE - HMO) Michelle Gray [id number] Michelle Gray Notes Date Note Type Note Provider Name and Address Organization Details Recorded Time 05/02/2024 text/html ROS as noted in the HPI 79-year-old female presents for evaluation of left tinnitus and otalgia. This started 7 months ago spontaneously. The ringing and pain are intermittent and she does not feel they are related. The ear pain is worst when she wakes up in the morning. She does not feel she has hearing loss. Denies otorrhea, pulsatile tinnitus, and dizziness. Denies prior history of ear infections or ear surgeries. No history of loud noise exposure. LASHONDA FERRELL MD [address] [place] [address], [phone], [facility] - [facility] 05/02/2024 12:47:44 OBGyn Episode No OBEpisode recorded.
--- OUTSIDE RECORDS SUMMARY | 2025-05-21 12:48 | XMS_ITS | Encounter Summary ---
Author Organization [employer] Address [address] [place] [address] 7 [place] [address] Care Team Providers Care Server Developer Name Role Phone Alisa Thakur MD Primary Care Provider [phone] Argelia Moore CNP Primary Care Provider [phone] Encounter Details Date Type Department Care Team (Latest Contact Info) Description 07/29/2019 Abstract [facility] CONVERSIONS Dental, Provider, DDS Social History Tobacco Use Types Packs/Day Years Used Date Smoking Tobacco: Never Assessed Comments Unknown Sex and Gender Information Value [...] on filedocumented in this encounter Care Teams Server Developer Relationship Specialty Start Date End Date Alisa Thakur MD [address] [place] [address] PCP - General Family Medicine 12/07/16 02/06/25 Argelia Moore CNP [address] [place] [address] PCP - General Family Medicine 02/07/25 documented as of this encounter
--- OUTSIDE RECORDS SUMMARY | 2025-05-21 12:48 | XMS_ITS | Clinical Summary ---
Author Organization [facility] Address [address] [place] [address] Phone Care Team Providers Care First Responder Name Role Phone Alisa Thakur MD Primary Care Provider [phone] Allergies No known active allergies Surgical History Surgery Date Site/Laterality Comments SHOULDER SURGERY 2009 Bilateral PROCEDURE: HISTORICAL SHOULDER SURGERY TONSILLECTOMY PROCEDURE: HISTORICAL TONSILLECTOMY BLADDER SURGERY PROCEDURE: HISTORICAL BLADDER SURGERY; COMMENT: urinary incontinence Medical History Medical History Date Comments Asthma 10/22/2015 DX:Asthma History of left breast cancer 10/22/2015 DX :History of left breast cancer Allergic rhinitis 10/22/2015 DX:Allergic rh initis Varicose veins of legs 10/22/2015 DX:Varico se veins of legs Diabetes type 2, controlled ([facility] V24, [facility] V28) 10/22/2015 DX:Diabetes type 2, controll ed ([facility]) Vaccine refused by patient 07/01/2016 DX:Va ccine refused by patient DDD (degenerative disc disea se), cervical 09/07/2016 DX:DDD (degenerative disc di sease), cervical Family History Relation Name Status Comments Father Mother (Age 87) DM, HTN Son 1 Alive Son 2 Alive DM Social History Tobacco Use Types Packs/Day Years Used Date Smoking Tobacco: Never Alcohol Use Standard Drinks/Week Comments No 0 (1 standard drink = 0.6 oz pur e alcohol) Comments Unknown Sex and Gender Information Value Date Recorded Sex Assigned at Female 05/08/2024 4:06 PM EST Legal Sex Female 2:08 AM EST Gender Identity Female 05/08/2024 4:06 PM EST Sexual Orientation Not on file Last Filed Vital Signs Vital Sign Reading Time Taken Comments Blood Pressure 126/82 05/09/2024 12:01 AM EST Pulse 85 05/09/2024 12:01 AM EST Temperature 36.8 C (98.2 F) 05/09/2024 12:01 AM EST Respiratory Rate 16 05/08/2024 2:15 PM EST Oxygen Saturation 95% 05/09/2024 12:01 AM EST Inhaled Oxygen Concentration - - Weight 68 kg (150 lb) 05/08/2024 2:15 PM EST Height 170.2 cm (5' 7 ) 05/08/2024 2:15 PM EST Body Mass Index 23.49 05/08/2024 2:15 PM EST Plan of Treatment Health Maintenance Due Date Last Done Comments COVID-19 Vaccine (#1) 1950 Diabetes: Annual Foot Exam 01/07/1956 Diabetes: Annual Retina Eye Exam 01/07/1956 Pneumococcal Vaccine: 50+ Years (1 of 2 - PCV) 1965 Zoster Vaccines (1 of 2) 1965 RSV Immunization Adult Patients (1 - 1-dose 75+ series) 2021 Falls Risk Assessment 04/24/2022 Hepatitis C Screening 04/24/2022 Medicare Annual Wellness Visit 04/24/2022 Social Influencers of Health Screening 04/24/2022 Diabetes: Annual Urine Albumin-Creatinine Ratio (uACR) 04/27/2022 Depression Screening 05/22/2024 Influenza Vaccine (#1) 2025 Diabetes: Annual GFR (Glomerular Filtration Rate) 05/08/2025 05/08/2024, 04/04/2024 Hypertension/CHF/CAD Annual BMP Blood Test 05/08/2025 05/08/2024, 04/04/2024 Diabetes: Blood Sugar Contro l Test (HGBA1C) 08/07/2025 02/07/2025, 04/01/2024 Osteoporosis Screening (Bone Density Screening) 06/29/2028 06/29/2018 Cholesterol Screening (Lipid Panel) 04/04/2029 04/04/2024 DTaP,Tdap,and Td Vaccines (2 - Td or Tdap) 11/23/2032 11/23/2022 HIB Vaccines Aged Out No longer eligi ble based on patient's age to complete this topic HPV Vaccines Aged Out No longer eligi ble based on patient's age to complete this topic Hepatitis A Vaccines Aged Out No long er eligible based on patient's age to complete this topic Hepatitis B Vaccines Aged Out No long er eligible based on patient's age to complete this topic IPV Vaccines Aged Out No longer eligi ble based on patient's age to complete this topic MMR Vaccines Aged Out No longer eligi ble based on patient's age to complete this topic Meningococcal ACWY Vaccine Aged Out N o longer eligible based on patient's age to complete this topic Meningococcal B Vaccine Aged Out No l onger eligible based on patient's age to complete this topic RSV Immunization Patients Under 20 months Aged Out No longer eligible b ased on patient's age to complete this topic Varicella Vaccines Aged Out No longer eligible based on patient's age to complete this topic Procedures Procedure Name Priority Date/Time Associated Diagnosis Comments COMPREHENSIVE METABOLIC PANEL STAT 05/08/2024 2:44 PM EST [facility] DEXA AXIAL SKELETON Routine 06/29/2018 5:50 PM EST Age-related osteoporosis without current pathological fracture from Last 3 Months or Most Recently Relevant to Health Maintenance Results * Comprehensive metabolic panel (05/08/2024 2:44 PM EST) Sodium 140 133 - 145 mmol/L LAB CHEMISTRY METHOD 05/08/2024 3:31 PM [facility] Potassium 4.1 3.5 - 5.5 mmol/L LAB CHEMISTRY METHOD 05/08/2024 3:31 PM [facility] Chloride 108 96 - 110 mmol/L LAB CHEMISTRY METHOD 05/08/2024 3:31 PM [facility] CO2 28 21 - 32 mmol/L LAB CHEMISTRY METHOD 05/08/2024 3:31 PM [facility] Anion Gap 4 3 - 11 LAB CHEMISTRY METHOD 05/08/2024 3:31 PM [facility] Glucose 92 70 - 100 mg/dL LAB CHEMISTRY METHOD 05/08/2024 3:31 PM [facility] BUN 11 5 - 25 mg/dL LAB CHEMISTRY METHOD 05/08/2024 3:31 PM [facility] Creatinine 0.70 0.50 - 1.10 mg/dL LAB CHEMISTRY METHOD 05/08/2024 3:31 PM [facility] eGFR 89 >=60 mL/min/1. 73m2 LAB CHEMISTRY METHOD 05/08/2024 3:31 PM [facility] Comment:Calculation based on the Chronic Kidney Disease Epidemiology Collaboration (CKD-EPI) equation refit without adjustment for race. BUN/Creatinine Ratio 15.7 LAB CHEMISTRY METHOD 05/08/2024 3:31 PM [facility] Calcium 9.5 8.5 - 10.5 mg/dL LAB CHEMISTRY METHOD 05/08/2024 3:31 PM [facility] AST (SGOT) 13 10 - 42 unit/L LAB CHEMISTRY METHOD 05/08/2024 3:31 PM [facility] ALT (SGPT) 18 10 - 60 unit/L LAB CHEMISTRY METHOD 05/08/2024 3:31 PM [facility] Alkaline Phosphatase 53 42 - 121 unit/L LAB CHEMISTRY METHOD 05/08/2024 3:31 PM [facility] Total Protein 6.8 6.0 - 8.0 g/dL LAB CHEMISTRY METHOD 05/08/2024 3:31 PM [facility] Albumin 3.6 3.2 - 5.0 g/dL LAB CHEMISTRY METHOD 05/08/2024 3:31 PM [facility] Total Bilirubin 0.6 0.0 - 1.4 mg/dL LAB CHEMISTRY METHOD 05/08/2024 3:31 PM [facility] Blood Venous blood specimen / Unknown Venipuncture / Unknown 05/08/2024 2:44 PM EST 05/08/2024 3:00 PM EST us Jamison He DO LAB BLOOD ORDERABLES Final Res ult [facility] [address] [place] [address], * [place] DEXA AXIAL SKELETON (06/29/2018 5:50 PM EST) Anatomical Region Laterality Modality Mammography 06/25/2018 12:4 5 PM EST Narrative 06/29/2018 5:50 PM EST [facility] Diagnostic Imaging Department [address] [place] [address] Patient: MICHELLE GRAY /Age/Sex: 1945 - 73 - F Unit#: [id number] Location/Status: SPDIMA/REG CLI Mnemonic/Ordering Site: MAMDEXAAX/SPMAM Ordering Physician: LUIS CID MD [place] Dexa Axial Skeleton - 06/25/18 - [id number] History: Metabolic bone disease. Post menopausal estrogen deficiency. Follow- up osteopenia. Findings: Bone densitometry is performed utilizing dual energy x-ray absorptiometry (DXA) in the [employer] unit. The lumbar spine and proximal femora are evaluated in the AP projection. The FRAX questionnaire was completed. The results indicate osteopenia based upon bone mineral density within the lumbar spine L1-L4 and mean bone mineral density within the proximal femurs, T score -1.8 and -2.4 respectively, within the expected range at patient's age. There is been a decrease in density up to -18.2% based upon right proximal femur. The detailed DEXA report will be mailed to the referring physician's office. IMPRESSION: Modest decline in patient's bone mineral density since previous DEXA studies 01/25/2011 and 08/21/2007. Osteopenia within the range of that which is expected at patient's age. Fracture risk based upon these data calculated at 10.4% and 3.3% major osteoporotic and hip fracture with the next 10 years. [id number] Dictating Physician: SESAR DAY MD Electronically Signed by: SESAR DAY MD Dic Date/Time: 06/29/181746 Sign date/Time: 06/29/18 175 Procedure Note Sesar Day MD - 05/11/2022 [facility] Diagnostic Imaging Department [address] [place] [address] Patient: MICHELLE GRAY /Age/Sex: 1945 - 73 - F Unit#: [id number] Location/Status: SPDIMAM/REG CLI Mnemonic[facility] Ordering Physician: LUIS CID MD [facility] Dexa Axial Skeleton - 06/25/18 - 7460 History: Metabolic bone disease. Post menopausal estrogen deficiency.Follow- up osteopenia. Findings: Bone densitometry is performed utilizing dual energy x-ray absorptiometry(DXA) in the [employer] unit. The lumbar spine and proximal femora areevaluated in the AP projection. The FRAX questionnaire was completed. The results indicate osteopenia based upon bone mineral density withinthe lumbar spine L1-L4 and mean bone mineral density within the proximalfemurs, T score -1.8 and -2.4 respectively, within the expected range at patient'rah. There is been a decrease in density up to -18.2% based upon rightproximal femur. The detailed DEXA report will be mailed to the referringphysician's office. IMPRESSION: Modest decline in patient's bone mineral density since previous DEXAstudies 01/25/2011 and 08/21/2007. Osteopenia within the range of that which isexpected at patient's age. Fracture risk based upon these data calculated at 10.4% and3.3% major osteoporotic and hip fracture with the next 10 years. [id number] Dictating Physician: SESAR DAY MD Electronically Signed by: SESAR DAY MD Dic Date/Time: 06/29/18 174 Sign date/Time: 06/29/181749 us Luis Cid MD IMG BI PROCEDURES Final Resu lt from Last 3 Months or Most Recently Relevant to Health Maintenance Insurance [facility] MEDIC[facility] Member Subscriber Plan / Payer (Ef fective 2017-Present) Name:Mingo Graya Relation to Subscriber:Self Name:Mingo Graya Payer ID:[id number] Group ID:[id number] Type:Not on file Address: [address] [place] [address] Care Teams First Responder Relationship Specialty Start Date End Date Alisa Thakur MD [address] [place] [address] PCP - General Family Medicine 05/08/24
--- OUTSIDE RECORDS SUMMARY | 2025-05-21 12:48 | XMS_ITS | Encounter Summary ---
Author Organization [employer] Address [address] [place] [address] 7 [place] [address] Care Team Providers Care Film Recordist Name Role Phone Alisa Thakur MD Primary Care Provider [phone] Argelia Moore CNP Primary Care Provider [phone] Reason for Visit * Reason Onset Date Comments Appointment Request 06/28/2022 Encounter Details Date Type Department Care Team ([facility] st Contact Info) Description 06/28/2022 Telephone [facility] MED & PEDS [address] [place], [place] [phone] Alisa Thakur MD [address] [place] [address] Appointment Request Social History Tobacco Use Types Packs/Day Years Used Date Smoking Tobacco: Never Assessed Depression Answer Date Recorded Patient Health Questionnaire-2 Score 2 04/25/2022 Comments Unknown Sex and Gender Information Value Date Recorded Sex Assigned at Female 03/21/2022 10:23 AM EDT Legal Sex Female 10:23 AM EDT Gender Identity Female 03/21/2022 10:23 AM EDT Sexual Orientation Straight 12/13/2022 10 :04 AM EDT documented as of this encounter Miscellaneous Notes * Telephone Encounter - Nima Deng - 06/28/2022 4:18 PM EST Tc from pt requesting an appt with provider. Animal Trapper try to book but Provider Callander is completely full. Please contact pt at [phone] Armenian Speaker documented in this encounter Plan of Treatment Not on file documented as of this encounter Visit Diagnoses Not on filedocumented in this encounter Care Teams Film Recordist Relationship Specialty Start Date End Date Alisa Thakur MD [address] [place] [phone] PCP - General Family Medicine 12/07/16 02/06/25 Argelia Moore CNP [address] [place] [id number] PCP - General Family Medicine 02/07/25 documented as of this encounter
--- OUTSIDE RECORDS SUMMARY | 2025-05-21 12:48 | XMS_ITS | Encounter Summary ---
Author Organization [email or web address] Address [address] [place] [address] 7t [place] [address] Care Team Providers Care Director Of Business Operations Name Role Phone Alisa Thakur MD Primary Care Provider [phone] Argelia Moore CNP Primary Care Provider [phone] Encounter Details Date Type Department Care Team ([facility] st Contact Info) Description 11/16/2022 Orders Only [facility] CHC MED & PEDS [address] [place], [place] [phone] Alisa Thakur MD [address] [place] [address] Social History Tobacco Use Types Packs/Day Years Used Date Smoking Tobacco: Never Smokeless Tobacco: Never Alcohol Use Standard Drinks/Week Comments Never 0 (1 standard drink = 0.6 oz pur e alcohol) Depression Answer Date Recorded Patient Health Questionnaire-2 Score 2 04/25/2022 Comments Unknown Sex and Gender Information Value Date Recorded Sex Assigned at Female 03/21/2022 10:23 AM EDT Legal Sex Female 10:23 AM EDT Gender Identity Female 03/21/2022 10:23 AM EDT Sexual Orientation Straight 12/13/2022 10 :04 AM EDT COVID-19 Exposure Response Date Recorded In the last 10 days, have yo u been in contact with someone who was confirmed or suspected to have Coronavirus/COVID-19? No / Unsure 11/04/2022 1:23 PM EDT documented as of this encounter Plan of Treatment Not on file documented as of this encounter Visit Diagnoses Not on filedocumented in this encounter Care Teams Director Of Business Operations Relationship Specialty Start Date End Date Alisa Thakur MD [address] [place] [id number] PCP - General Family Medicine 12/07/16 02/06/25 Argelia Moore CNP [address] [place] [phone] PCP - General Family Medicine 02/07/25 documented as of this encounter
--- OUTSIDE RECORDS SUMMARY | 2025-05-21 12:48 | XMS_ITS | Clinical Summary ---
Author Organization [employer] Address [address] [facility] [address] [place] [address] Care Team Providers Care Beam Builder Helper Name Role Phone Argelia Moore AYDE Primary Care Provider [phone] Allergies No known active allergies Medications Colchicine 0.6 MG capsule Take 1 capsule by mouth at bed time. 04/12/20 21 Active hydrOXYzine pamoate (Vistaril) 25 MG capsule Take 1 capsule by mouth every 8 (eight) hours. 03/23/20 21 Active ibuprofen 200 MG tablet Take 1 tablet by mouth every 8 (eight) hours. 10/16/19 22 Active nitroglycerin (Nitrostat) 0.4 MG SL tablet take 1 Tablet by Sublingual route every 5 minutes as needed for chest pain If no relief, go to ER Active aspirin 81 MG EC tablet Take 1 tablet (81 mg) by mouth in the morning. 90 tablet 1 12/14/19 23 Active Diclofenac Sodium 1 % gelIndications:M uscle spasm,Low back pain associated with a spinal disorder other than radiculopathy or spinal stenosis To apply to the affected area 3 times a day 100 g 1 09/06/19 24 Active gabapentin (Neurontin) 100 MG capsule Take 1 capsule by mouth 2 times daily. Active ipratropium-albu terol (Duo-Neb) 0.5-2.5 mg/3 mL nebulizer solution USE ONE VIAL THREE TIMES DAILY FOR 30 DAYS 09/08/19 24 Active gemfibrozil (Lopid) 600 MG tablet Take 1 tablet (600 mg) by mouth Once per day. 90 tablet 3 10/18/19 24 Active valsartan (Diovan) 80 MG tabletIndication s:Essential hypertension TAKE 1 TABLET BY MOUTH EVERY DAY EVERY MORNING 30 tablet 11 08/21/19 25 Active valsartan (Diovan) 80 MG tabletIndication s:Essential hypertension TAKE 1 TABLET BY MOUTH EVERY DAY EVERY MORNING 30 tablet 11 08/21/19 25 Active Diclofenac Sodium (Voltaren) 1 % gel Use topical BID 100 g 3 08/27/19 25 Active meloxicam (Mobic) 7.5 MG tablet Take 1 tablet (7.5 mg) by mouth 2 times daily. 60 tablet 11 08/27/19 25 2025 Active pantoprazole (ProtoNix) 40 MG EC tablet TAKE 1 TABLET(40 MG) BY MOUTH BEFORE BREAKFAST 30 tablet 1 09/28/19 25 Active cetirizine (ZyrTEC) 10 MG tablet TAKE 1 TABLET BY MOUTH EVERY MORNING 30 tablet 3 01/28/20 25 Active meclizine (Antivert) 25 MG tablet TAKE 1 TABLET BY MOUTH TWICE DAILY 60 tablet 3 02/27/20 25 Active verapamil SR (Calan SR) 120 MG ER tabletIndication s:Essential hypertension TAKE 1 TABLET BY MOUTH AT BEDTIME. DO NOT CRUSH OR CHEW. 30 tablet 1 03/27/20 25 Active Alcohol Swabs (B-D SINGLE USE SWABS REGULAR) padsIndications: Type 2 diabetes mellitus without complication, without long-term current use of insulin (HCC) USE ONE WIPE DIRECTED TWICE DAILY 100 each 05/21/20 25 Active glucose blood (FREESTYLE LITE) test stripIndications :Type 2 diabetes mellitus without complication, without long-term current use of insulin (HCC) Use to check blood sugar 1-2 times daily and when symptomatic. 100 each 11 05/21/20 25 Active nystatin (Mycostatin) 445922 UNIT/GM powderIndication s:Intertrigo Apply topically 2 times daily. 60 g 1 05/21/20 25 2025 Active albuterol 108 (90 Base) MCG/ACT inhaler Inhale 2 puffs every 4 (four) hours if needed. 03/23/20 21 2023 Discontinued(D uplicate order (will not trigger notification to Pharmacy)) fluticasone (Flovent HFA) 110 MCG/ACT inhaler Inhale 1 puff every 12 (twelve) hours. 03/23/20 21 2023 Discontinued(M ed list cleanup (will not trigger notification to Pharmacy)) Alcohol Swabs (B-D SINGLE USE SWABS REGULAR) padsIndications: Type 2 diabetes mellitus without complication, without long-term current use of insulin (HCC) USE ONE WIPE DIRECTED TWICE DAILY 100 each 11/18/19 24 2024 Discontinued(R eorder (will not trigger notification to Pharmacy)) glucose blood (FREESTYLE LITE) test stripIndications :Type 2 diabetes mellitus without complication, without long-term current use of insulin (HCC) Use to check blood sugar 1-2 times daily and when symptomatic. 100 each 11 11/20/19 24 2024 Discontinued(R eorder (will not trigger notification to Pharmacy)) Active Problems Problem Noted Date Diagnosed Date Personal history of breast cancer 05/19/2025 History of total right knee replacement (TKR) Low back pain 11/13/2024 Osteoarthritis of right knee 11/13/2024 Sensorineural hearing loss (SNHL) of both ears 1 07/03/2023 Tinnitus of left ear 05/02/2024 Cyst of nasal sinus 08/22/2023 Overview (05/19/2025): Cyst and mucocele of nose and nasal sinus; Note: Date Diagnosed: 08/22/2023 11:03 AM (J34.1) Mixed stress and urge urinary incontinence 06/15 Assessment & Plan (06/19/2023 5:02 PM EST): Chronic issue. Patient is a poor historian and I am not her primary care provider. At this point will refer to urology and strongly recommended talking with her PCP about her incontinence. Cystocele affecting management of , ant epartum 03/17/2023 03/17/2023 Asthma 03/17/2023 03/17/2023 Depression 03/17/2023 03/17/2023 Stress incontinence in female 03/17/2023 Anxiety 07/28/2022 Type 2 diabetes mellitus wit hout complication, without long-term current use of insulin 04/24/2022 Assessment & Plan (05/21/2025 12:10 PM EST): Lab Results Component Value Date HGBA1C 5.7 [...] Orders: POCT A1c POCT glucose manually resulted (CPT-96657) Lipid Panel, Standard; Future Albumin, Random Urine W/Creatinine; Future CBC auto differential; Future Comprehensive Metabolic Panel; Future Alcohol Swabs (B-D SINGLE USE SWABS REGULAR) pads; USE ONE WIPE DIRECTED TWICE DAILY glucose blood (FREESTYLE LITE) test strip; Use to check blood sugar 1-2 times daily and when symptomatic. Referral to Cardiology; Future Hypertriglyceridemia 04/24/2022 Assessment & Plan (05/21/2025 12:10 PM EST): Orders: Referral to Cardiology; Future Essential hypertension 04/24/2022 Assessment & Plan (05/21/2025 12:10 PM EST): Orders: Referral to Cardiology; Future Assessment & Plan (04/25/2022 1:03 PM EST): Elevated BP Unsure if pt is compliant to her medication Compliance to medication advised. F/u w/ PCP in 1 month or so. Mild intermittent asthma 04/24/2022 GERD (gastroesophageal reflux disease) 2 Allergic rhinitis 03/04/2019 Overview (05/19/2025): Allergic rhinitis: Due to other allergen; Note: Date Diagnosed: 03/04/2019 10:44 AM (477.8) Other allergic rhinitis; Note: Date Diagnosed: 02/18/2019 1:17 PM (J30.89) ; Start Date : 02/18/2019 Diaphragmatic hernia 02/18/2019 Overview (05/19/2025): Diaphragmatic hernia without obstruction or gangrene; Note: Date Diagnosed: 02/18/2019 1:19 PM (K44.9) Carcinoma in situ of breast 08/22/199602/20 Resolved Problems Problem Noted Date Diagnosed Date Resolved Date Varicose vein of leg 05/19/2025 025 Referred otalgia of left ear 05/02/2024 05/21/2025 Chest pain 03/17/2023 03/17/2023 05/21/2025 Palpitation 03/17/2023 03/17/2023 05/21/2025 Pericarditis 03/17/2023 03/17/2023 05/21/2025 Hypertension 03/17/2023 03/17/2023 05/21/2025 Diabetes mellitus 03/17/2023 03/17/2023 05/21/2025 Diabetes mellitus without complication 10/14/202105/21/2025 Posterior rhinorrhea 02/18/2019 025 Overview (05/19/2025): Postnasal drip; Note: Date Diagnosed: 02/18/2019 1:17 PM (R09.82) Gastroesophageal reflux dise ase without esophagitis 02/18/2019 05/21/2025 Overview (05/19/2025): Gastro-esophageal reflux disease without esophagitis; Note: Date Diagnosed: 02/18/2019 1:17 PM (K21.9) Encounters Date Type Department Care Team Description 05/21/2025 10:45 AM EST Office Visit [facility] [address] [place] [address] Argelia Moore CNP Angular cheilitis (Primary Dx); Type 2 diabetes mellitus without complication, without long-term current use of insulin (HCC); Syncope and collapse; Intertrigo; Essential hypertension; Hypertriglyceridemia 05/21/2025 Travel 05/19/2025 Telephone [facility] [address] [place] [address] Argelia Moore CNP chart prep 03/27/2025 Refill [facility] [address] [place] [address] Alisa Thakur MD Essential hypertension 02/25/2025 Refill [facility] [address] [place] [address] Alisa Thakur MD from Last 3 Months Immunizations Immunization Administration Dates Next Due Tdap 11/23/2022 Social History Tobacco Use Types Packs/Day Years Used Date Smoking Tobacco: Never Passive Smoke Exposure: Never Smokeless Tobacco: Never Tobacco Cessation:Counseling Given: Not Answered Alcohol Use Standard Drinks/Week Comments Never 0 [...] Orientation Straight 12/13/2022 10 :04 AM EDT Last Filed Vital Signs Vital Sign Reading [...] Mass Index 26.34 05/21/2025 10:17 AM EST Plan of Treatment Health Maintenance Due Date Last Done Comments Eye Exam 01[birth year]07/1955 Hepatitis C Screening 01/07/1964 Diabetes: Urine Protein Screening 1964 Pneumococcal Vaccine: 50+ Years (1 of 2 - PCV) 1965 Zoster Vaccines (1 of 2) 01/07/1996 Dental X-Ray: Bitewings 07/29/2020 07/29/2019 RSV Patients and Patients Aged 60 years or older (1 - 1-dose 75+ series) 2021 Dental X-Ray: Full Mouth 07/29/2022 07/29/2019 Dental Oral Exam 06/16/2023 12/13/2022, , 03/15/2012 Dental Prophylaxis 06/16/2023 12/13/2022, 0 07/29/2019, 08/06/2013 Diabetes: Foot Exam 11/24/2023 11/23/2022, COVID-19 Vaccine ( - season) 2025 Influenza Vaccine (#1) 2025 Lipid Panel 04/04/2025 04/04/2024, 0708/2022, 03/10/2021 Alcohol/Substance Use Screening 07/17/2025 07/17/2024 Depression Screening 07/17/2025 07/17/2024, 07/17/19 SDOH Screening 07/17/2025 07/17/2024 Diabetes: Hemoglobin A1C 11/18/2025 025, 02/07/2025, 04/01/2024, Additional history exists Tobacco Screening 02/07/2026 02/07/2025 DTaP/Tdap/Td Vaccines (2 - Td or Tdap) 11/23/2032 [...] patient's age to complete this topic Meningococcal Vaccine Aged Out No craig nestor eligible based on patient's age to complete this topic RSV under 20 months Aged Out No longe r eligible based on patient's age to complete this topic Rotavirus Vaccines Aged Out No longer eligible based on patient's age to complete this topic Procedures Procedure Name Priority Date/Time Associated Diagnosis Comments POCT GLYCATED HEMOGLOBIN, TOTAL Routine 05/21/2025 10:22 AM EST Type 2 diabetes mellitus without complication, without long-term current use of insulin ([facility]) POCT GLUCOSE (CPT-[id number]) Routine 05/21/2025 10:21 AM EST Type 2 diabetes mellitus without complication, without long-term current use of insulin ([facility]) CT CHEST WO CONTRAST Routine 04/07/2025 Lung nodules LIPID PANEL, STANDARD Routine 04/04/2024 8:21 AM EST Type 2 diabetes mellitus without complication, without long-term current use of insulin ([facility]/HCC) Essential hypertension PROPHYLAXIS - ADULT Routine 12/13/2022 1 0:00 AM EDT PERIODIC ORAL EVALUATION - ESTABLISHED PATIENT Routine 12/13/2022 8:30 AM EDT INTRAORAL - COMPLETE SERIES OF RADIOGRAPHIC IMAGES Routine 07/29/2019 12:00 AM EDT from Last 3 Months or Most Recently Relevant to Health Maintenance Results * POCT A1c (05/21/2025 10:22 AM EST) [facility] Hemoglobin A1C 5.7 4.0 - 5.7 % QC Media Lot # Comment:[id number] Lot# Expiration Date Comment:04/25/2027 Blood 05/21/2025 10:2 2 AM EST [facility] POINT OF CARE TEST ENTER/ EDIT ORDERABLES Final Result * POCT glucose manually resulted (CPT-45117) (05/21/2025 10:21 AM EST) [facility] Glucose Blood, POC 92 60 - 200 mg/dL QC Media Lot # Comment:[id number] Lot# Expiration Date Comment:08/26/2025 Blood Capillary blood specimen / Unknown 05/21/2025 10:21 AM EST [facility] POINT OF CARE TEST ENTER/ EDIT ORDERABLES Final Result * CT Chest w/o Contrast (04/07/2025) Anatomical Region Laterality Modality Body, Chest Computed Tomogra phy Alisa Thakur MD IMG CT PROCEDURES Final Result * (ABNORMAL) Lipid Panel, Standard (04/04/2024 8:21 AM EST) [facility] Triglycerides 216(H) <150 mg/dL [facility] Comment:Desirable Triglyceri de: less than 150 mg/dLBorderline High Triglyceride 150-199 mg/dLHigh Triglyceride: 200-499 mg/dLVery High Triglyceride: greater than or equal to 5OO mg/dL Cholesterol 176 <200 mg/dL [facility] Comment:Desirable Cholestero l: less than 200 mg/dLBorderline High Cholesterol: 200-239 mg/dLHigh Cholesterol: greater than 239 mg/dL LDL Cholesterol Calculated 89 <100 mg/dL [facility] Comment:Desirable LDL: less than 100 mg/dLNear Optimal/Above Optimal LDL: 110- 129 mg/dLBorderline High LDL: 130-159 mg/dLHigh LDL: 160-189 mg/dLVery High LDL: greater than or equal to 190 mg/dL HDL Cholesterol 44 >40 mg/dL [facility] Comment:Desirable HDL: great er than 40 mg/dL Note: This HDL assay may give artificially low results in patients with liver disease. Blood Venous blood specimen / Unknown 04/04/2024 8:21 AM EST 04/04/2024 2:10 PM EST us Alisa Thakur MD LAB BLOOD ORDERABLES Final Resul t [facility] [address] [place] [address] [phone] from Last 3 Months or Most Recently Relevant to Health Maintenance Insurance [facility] [facility] [employer] (O D-SNP) RICHARD FRIAS [id number] [facility] Care Teams Beam Builder Helper Relationship Specialty Start Date End Date Argelia Moore CNP [address] [place] [phone] PCP - General Family Medicine 02/07/25
--- OUTSIDE RECORDS SUMMARY | 2025-05-21 12:48 | XMS_ITS | Data Portability ---
Author Organization [facility], [facility] Address [address] [place] [address] Care Team Providers Care Home Planning Consultant Salesperson Name Role Phone Unavailable Referring Provider [phone] HIM CCA OTHER Assessment Encounter Date Assessment Date Assessment LastModified by Organization Details LastModified Time 03/15/2023 03/15/2023 I provided real -time medical direction via phone for this encounter, and was available for additional phone based assistance as needed. I have reviewed and agree with the Assessment and Plan as documented by the Cavity Pump Operator. Patient given the opportunity to ask questions. 78-year-old female reportedly diagnosed with urinary tract infection and left-sided kidney stone at [facility] emergency department on 03/12 is seen for ongoing left flank pain. Per report obstructive renal stone was seen via ultrasound (report not available) with CT scan demonstrating no evidence of stone (unclear if this was with contrast which would limit the sensitivity of CT to diagnose nephrolithiasis) . Regardless, patient with ongoing severe left-sided flank pain mild tachycardia and hypertension. Given concern for ongoing renal obstruction with severe symptoms recommended return to the emergency department for consideration of repeat imaging. She has been adherent with p.o. antibiotics administered by the emergency department. She reports tramadol prescribed to her is not effective at managing her pain given she is unable to tolerate the medicine due to nausea. Patient refusing to go to the emergency department stating that she does not wish to. Voices understanding of the risks of staying home including worsening renal function, infection, disability or . Declining IV interventions including fluids and systemic analgesics. Reports will push p.o. fluids and utilize NSAIDs. Recommended call back versus ED presentation at any time should her symptoms worsen. [email or web address] Not available 03/15/2023 15:40:17 09/05/2023 09/05/2023 I have reviewed and agree with the assessment and plan as documented by the tip scourer. I provided real-time medical direction for this encounter and was immediately available to provide additional phone-based assistance as needed. 78F DM, HTN, COPD with intermittent episodes of occasional choking sensation, accompanied by anxiety, intermittent SOB. Pt has had these symptoms for several months. Denies any chest pain, no current difficulty breathing. No cough or wheezing. No fever/chills. O/E: vitals normal, pt well appearing. No neurological deficits. Alert and oriented, no resp distress. Airway normal, no swelling. Respiratory exam normal, no wheezing. Overall differential is broad. Do not suspect cardiac etiology given lack of chest pain or discomfort. Could be COPD/Asthma related, however no evidence for respiratory findings presently. It appears that choking sensation is likely related to food, possible swallowing disorder. Recommend patient have close PCP follow up to assess for possibly aspiration. No evidence to suggest pneumonia or need for antibiotics. Recommend family continue to monitor patient closely, red flags discussed. For close PCP follow up. paysola Not available 09/05/2023 21:52:00 05/08/2024 05/08/2024 I provided real -time medical direction via phone for this encounter and was available for additional phone-based assistance as needed. I have reviewed and agree with the Assessment and Plan as documented by the Cavity Pump Operator. Patient given the opportunity to ask questions. Our service contacted for an assessment of: Questionable UTI As per above, patient with history of colitis. She calls this service as she has pain below the umbilicus and some pain with urination. Upon further investigation, the patient states that her urinary symptoms are more frequency than dysuria. Her pain is below the umbilicus but not suprapubic. It does not radiate. She denies urgency or incontinence. Her bowel movements are all normal. She denies fever or chills. She denies flank pain or back pain. She states she has had no change in her bowel movements. She states that the last time she had this pain below her umbilicus she wound up with colitis but did not need to be in the hospital. Again she states that her bowel movements are all normal and she goes daily with no recent changes to them. She has not been on any new antibiotics. She is eating and drinking normally. Per tip scourer on the scene, vital signs are stable the patient is afebrile. UA is negative. Impression: Abdominal pain with UTI ruled out. No definitive evidence of colitis based on history. Plan: Observation for now. Asked patient to follow-up with PCP. Red flags discussed when to either recall this service or seek a higher level of care. Allergies: Reviewed PCP f/u: We discussed the diagnostic uncertainty of home visits and the risk associated with this. In this case, the patient and I felt this to be an acceptable and reasonable amount of risk given the benefit of avoiding an ED visit. We discussed the need to seek care urgently/emergen tly in the setting of any new or worsening serious symptoms [email or web address] Not available 05/08/2024 14:56:25 02/03/2025 02/03/2025 See other note, orders [email or web address] Not available 02/03/2025 16:14:41 Plan of Treatment Reminders Order Date Submit Date Provider Last Modified By Organization Details Last Modified Time Details Appointments None recorded. Lab urinalysis , dipstick [address] [place] [address], [address] [place] [address], [phone] 08:03:46 Referral None recorded. Procedures None recorded. Surgeries None recorded. Imaging None recorded. Medication Orders None recorded. Patient TargetsNo targets recorded. Patient InstructionsNo instructions recorded. Reason for Referral None Reported. Results Created Date Observation Date Name Description Value Unit Range Abnormal Flag Note LastModifiedBy Organization Detail LastModifiedTime 02/04/2002/05/2025 URINE CULTU REBENJAMÍN urine culture, routine Final report abnormal Not Available [facility] ([facility]) [address], [place], [address], 02/05/2025 12:06:02 02/04/2002/05/2025 URINE CULTU REBENJAMÍN NE result 1 COMMEN T abnormal Beta hemol ytic Strep tococ cus, group B 10,00 0-25, 000 colon y formi ng units per mL Susce ptibi lity not chandan lly perfo rmed on this organ ism. Penic illin and ampic illin are drugs of choi e for treat ment of beta- hemol ytic strep tococ [place]akota infec tions . Susce ptibi lity testi ng of penic illin s and other beta- lacta m agent s appro inna by the FDA for treat ment of beta- hemol ytic strep tococ [place] infec tions need not be perfo rmed routi nirmala becau se nonsu scept ible isola zaira are extre ashley rare in any beta- hemol ytic strep tococ cus and have not been repor anjum for Strep tococ cus pyoge ephraim (grou p A). (CLSI ) Not Available [facility] ([facility]) [address] [place], [address], 02/05/2025 12:06:02 02/04/2002/05/2025 URINE CULTU RE, ASHLEYI NE result 2 COMMEN T Mixed uroge nital jelly 25,00 0-50, 000 colon y formi ng units per mL Not Available [facility] ([facility]) [address] [facility], [place], [address], 02/05/2025 12:06:02 Result Notes None recorded. Medical Equipment None Reported. Allergies No known drug allergies Medications Name Sig Start Date Stop Date Status Note LastModified by Organization Details LastModified Time verapamil ER (SR) 120 mg tablet,extend ed release active Not Available Not Available N ot Available amoxicillin 500 mg capsule TAKE ONE CAPSULE BY MOUTH THREE TIMES DAILY FOR 7 DAYS. active Not Available Not Available No t Available BD Alcohol Swabs USE ONE WIPE TWICE DAILY DIRECTED active Not Available Not Available No t Available cetirizine 10 mg tablet TAKE 1 TABLET BY MOUTH EVERY MORNING active Not Available Not Available No t Available valsartan 80 mg tablet TAKE 1 TABLET BY MOUTH DAILY active Not Available Not Available No t Available aspirin 81 mg tablet,delaye d release TAKE 1 TABLET BY MOUTH EVERY MORNING active Not Available Not Available No t Available tramadol 50 mg tablet TAKE 1 TABLET BY MOUTH EVERY 6 HOURS NEEDED FOR SEVERE PAIN active Not Available Not Available No t Available alprazolam 0.25 mg tablet TAKE 1 TABLET BY MOUTH TWICE DAILY OR THREE TIMES DAILY NEEDED active Not Available Not Available No t Available gemfibrozil 600 mg tablet active Not Available Not Availabl e Not Available cephalexin 500 mg capsule TAKE 1 CAPSULE BY MOUTH TWICE DAILY active Not Available Not Available No t Available gabapentin 300 mg capsule TAKE 1 CAPSULE BY MOUTH EVERY DAY AT BEDTIME active Not Available Not Available N ot Available gabapentin 100 mg capsule TAKE 1 CAPSULE BY MOUTH TWICE DAILY IN THE MORNING AND AFTERNOON active Not Available Not Available No t Available estradiol 0.01% (0.1 mg/gram) vaginal cream APPLY 1 GRAM VAGINALLY EVERY MONDAY AND MONDAY active Not Available Not Available No t Available albuterol sulfate HFA 90 mcg/actuation aerosol inhaler INHALE 2 PUFFS BY MOUTH EVERY 4 TO 6 HOURS NEEDED active Not Available Not Available No t Available nitrofurantoi n monohydrate/m acrocrystals 100 mg capsule active Not Available Not Available Not Available FreeStyle Lite Strips USE DIRECTED TO TEST BLOOD SUGAR EVERY 12 HOURS active Not Available Not Available No t Available diclofenac 1 % topical gel APPLY TOPICALLY TO THE AFFECTED AREA THREE TIMES DAILY active Not Available Not Available No t Available Vitals Date Recorded Body temperature Respiratory rate Heart rate Body weight Oxygen saturation Systolic And Diastolic Provider Name and Address Organization Details Last Updated DateTime 4 99.1 [degF] 14 /min 80 /min 63267.7 2 g 98 % 164/98 mm[Hg] Not Available [employer] 4 21:40:21 Date Recorded Body height Respiratory rate Body weight Body temperature Oxygen saturation Heart rate Systolic And Diastolic Provider Name and Address Organization Details Last Updated DateTime 5 170.18 cm 18 /min 24752.1 28 g 98 [degF] 97 % 85 /min 155/75 mm[Hg] Not Available [employer] 5 16:13:18 Date Recorded Heart rate Respiratory rate Oxygen saturation Body temperature Systolic And Diastolic Provider Name and Address Organization Details Last Updated DateTime 3 93 /min 14 /min 94 % 98.4 [degF] 150/80 mm[Hg] Not Available [employer] 3 13:21:44 Date Recorded Body temperature Respiratory rate Body height Heart rate Oxygen saturation Body weight Systolic And Diastolic Provider Name and Address Organization Details Last Updated DateTime 4 98.6 [degF] 16 /min 170.18 cm 89 /min 96 % 04603.7 6 g 168/92 mm[Hg] Not Available [employer] 14:51:16 Social History None recorded. Functional Status None recorded. Mental Status None recorded. Family History Nothing Reported. Medical History No medical history recorded. Gynecological HistoryNo gynecological history recorded. Obstetrics History GPAL:G 0 P 0 0 0 0 Past Encounters Encounter ID Performer Location Encounter Start Date Encounter Closed Date Diagnosis/Indication Diagnosis SNOMED-CT Code Diagnosis ICD10 Code Diagnosis IMO Codes Diagnosis Note [id number] Bert Islas MD [facility] [address] [place] [address] [phone] [id number] 03/15/2023 13:21:41 03/15/2023 23:20:38 Left flank pain 145777833 R10.9 [id number] Patricia Crain MD [facility] [address] [place] [address] [id number] 09/05/2023 21:40:16 09/06/2023 11:30:51 Dyspnea [id number] R06.00 [id number] Miranda Herrera MD [facility] [address] [place] [address] [id number] 05/08/2024 14:51:13 05/08/2024 22:57:11 Lower urinary tract symptoms [id number] R39.9 [id number] Miranda Herrera MD [facility] ED Medical [address] [id number] 02/03/2025 16:13:07 02/03/2025 18:03:37 Urinary system finding 367194631 R39.9 [id number] Health Concerns Section Related Observation LastModified by Organization Detai ls LastModified Time None Recorded Concern Status LastModified by Organization Details LastModified Time None Recorded Advance Directives Directive None Recorded Payers Insurance Date Sequence Insurance Name Policy Number Policy Trammell Covered Member ID Trammell Member ID Guarantor Name 02/03/2025 1 [facility] - DOS ON OR AFTER 2022 - DUAL ELIGIBLE - [employer] OPTIONS AND ONE CARE (MEDICARE REPLACEMENT/ADV ANTAGE - HMO) Michelle Gray [id number] Michelle Gray Notes Date Note Type Note Provider Name and Address Organization Details Recorded Time 03/15/2023 text/html HPI: Patient seen at [facility] Ed 03/12 left flank pain. Found to have UTI compliant with antibiotics. unable to tolerate dispensed pain medication as it made her nauseous. Continues with pain and nausea. ..................... ..................... ..................... ..................... ..................... ..................... ............... CRC Nursing Assessment: Comments: CRC RN DID NOT NEED FURTHER INFO ..................... ..................... ..................... ..................... ..................... ..................... ............... Cavity Pump Operator Note From Rochelle Carmona: [facility] Cavity Pump Operator Lucía Carmona CCA1 dispatched to a [facility] for a 78 yof C/O left sided back pain X3 days. Upon arrival, the pt was sitting in her kitchen, awake and alert, HITCHCOCK X4, obviously in pain. She stated she had severe left sided back pain, for which she was seen in [facility] ED 2 days prior. She was told a kidney stone was found w/ ultrasound, but no kidney stone was found w/ CT scan. She was prescribed keflex (which she had been taking) and tramadol. She stated she was unable to tolerate the tramadol due to nausea, and that she was in severe pain. She stated she felt hot and chilled, but denied BURNS, dizziness, sore throat, cough, vomiting, CP, SOB, abd pain, or diarrhea. She stated she had urinary retention at baseline, but that she was able to urinate. She stated pain bilaterally in posterior lumbar region, but severe pain in left flank radiating up to her LLQ. [facility] consulted; it was recommended to the pt that she return to the ED for prevent hydronephrosis/kidney damage and for pain mgmt. The pt refused. Her son on scene translated; the pt was fully informed of the risks of refusing transportation and treatment-she verbalized understanding and still refused to go to the ED. The pt's son on scene tried multiple times and in multiple different ways to convince the pt to return to the ED-she still refused. IV fluids and toradol were offered; the pt refused any needles. She agreed to drink plenty of water, and was witnessed taking 600 mg ibuprofen. It was made clear to her the dangers of refusing, and that it was the professional medical opinion of [facility] that she go to the ED. Pt refusal, AMA. Red flags discussed at length. ..................... ..................... ..................... ..................... ..................... ..................... ............... Disposition: Fulfilled Bert Islas MD [address] [place] [address],[address], [place], [phone], [facility] - [facility] 03/15/2023 15:40:49 09/05/2023 text/html CRC Nurse Triage Notes (Ameya Nayak): Chief Complaints: Chest Pain, Shortness of Breath/Dyspnea PMH: Diabetes, Hypertension, COPD/Asthma Allergies: Unknown Comments: Latin Teacher verified the member's name//address and phone number. Member's granddaughter calling stating member is c/o SOB & chest pain. Member has hx of COPD; member reports having similar symptoms in the past. Spoke to both daughter & granddaughter and explained that they should call 911 or bring member to nearest emergency room, family relays that mbr has been to ER for the same in the past & is adamantly refusing to go and wants [facility] visit instead. Daughter & granddaughter verbalize understanding of risk of not seeking emergency care for mbr. Education provided on the response time and the member was advised to monitor reported s/s and seek emergency treatment if needed -Loraine Nayak RN ..................... ..................... ..................... ..................... ..................... ..................... ............... Cavity Pump Operator Note From Evens Hayden: pt is a 78yo F who's granddaughter (CASTING OPERATOR HELPER) called stating pt is c/o SOB & chest pain, and SpO2 was in the 60s. Pt has hx of COPD. Pt answers appropriately, however at times does not answer directly. Often answer vagally. Example, when asked if there is CP, pt would answer with yes, in the past, pt would have to be redirected several times to get a current and direct answer. Assessment: Mental Status: Pt is CAOx4 acting appropriately, normal level of alertness, evaluate focal cortical functioning, and observe normal cognition, mood, affect, and thought content. Cranial Nerves: Check visual miranda by confrontation. Examine pupils and eye movements. Test facial strength by observing for asymmetries during natural speech. 0 on the FAST-ED stroke scale. No Paresthesia noted in any extremity or face. Motor Examination: Observe for adventitial movements - none noted. Check for pronator drift none noted. Assess external rotation of the leg - full ROM, in all four extremities, although abduction motion caused pain in L shoulder. Evaluate muscle tone - no abnormalities. Perform functional strength testing - no abnormalities noted. CASTING OPERATOR HELPER/Granddaughter also reported SpO2 of 60% about an hour after eating and describes signs of Dysphagia. There were no evidence of this or of SOB/Cyanosis during exam. Conditions and complaints appear to be a chronic issue. Suggest following up with PCP, neurologist, and miller wood flour again. Pt had c/o CP earlier in the evening and noted the pt had been Rx Matias. Current Rx is , and pt and family were advised not to use the medication. Inquired on why the pt was on nitro, and no answer could be provided. Suggested asking PCP or Land Management Forester about it. Discussed possible uses of Nitro and the risks of using it. Also stated that you will need to check with the doctor before using it, and to see how the dr would like the pt to use the nitro. Did explain risks of hypotension, and complication from it. Family reports the pt has never used the nitro in the past. MIH did explain the pt may have angina and that could be why she has the nitro. Pt currently have no complaints, except left sided BURNS. Pt denied CP, SOB, ABD pain, N/V/D, or constipation. MD consult Pt needs to follow up with PCP. Note will be documented with PCP. Discussed red flags with the pt and family, and when to call 911/EMS/ER. ..................... ..................... ..................... ..................... ..................... ..................... ............... Disposition: Meliton Crain MD [address] [facility],[address], [place], [phone], [facility] 09/06/2023 09:18:53 05/08/2024 text/html CRC Nurse Triage Notes (Seble Wright - SHON): Reason For Request: Juan Sanchez calling, pt has uti symptoms Chief Complaints: Urinary symptoms PMH: Hypertension, COPD/Asthma Comments: Patients granddaughter calling in to place a referral, patient identified via name and . Patient with complaints of inability to start urine stream, urgency and frequency, flank pain and malodor. Denies fever discoloration, no abdominal pain, no nausea or vomiting, denies fever/chills. Patient would like to be evaluated. Cavity Pump Operator Organization Information for Kumar Pernell Ritter [employer] Business Legal Name: [employer]. Address: [address] [place] [address], Hydraulic Elevator Constructor: Rm Davis MD JULIOCESAR No.: [id number] Cavity Pump Operator POC Test Results from Kumar Pernellbautista VINCENT Urine Dipstick (14:40:16) Urine leukocytes: - ISABEL Urine nitrites: - NIT Urine urobilinogen: - URO Urine protein: - PRO Urine pH: 5.0 pH Urine blood: - BLO Urine specific gravity: 1.010 SG Urine ketones: - KET Urine bilirubin: - MINISTERIO Urine glucose: - GLU ..................... ..................... ..................... ..................... ..................... ..................... ............... Cavity Pump Operator Note From Pernell Heath: [facility] visit for female pt. Pt presents at home with grand daughter. Pt is Polish speaking only and so an cellophane press operator was utilized. Pt presents complaining of some pain in her abdomen in addition to some dysuria. Pain localized to be a few inches left of the umbilicus. Pt reports feeling this way earlier this year and being diagnosed with colitis. Pt reporting daily bowel movements and denying diarrhea or constipation. Abdomen soft with some pain in same location left of umbilicus. V/S taken as listed. Pt afebrile. Pt provided urine sample with dipstick analysis. No concerns from sample. Consulted with [facility] Dr. Herrera who advised pt to monitor symptoms and follow up with PCP. Pt education provided. ..................... ..................... ..................... ..................... ..................... ..................... ............... [facility] Consulted: Miranda Herrera ..................... ..................... ..................... ..................... ..................... ..................... ............... Disposition: Fulfilled Miranda Herrera MD [address] [place] [address],[address], [place], [phone], [facility] 05/08/2024 14:56:43 02/03/2025 text/html CRC Nurse Triage Notes (Ameya Nayak): Reason For Request: Pt's CASTING OPERATOR HELPER reporting a Weird sensation down there Denies: Unable to void greater than 5 hours Erection that will not go away after 2 hours Fall or trauma that results in urinary incontinence in the setting of pain Fall or injury that results in incontinence in the absence of pain Lower back pain either unilateral or bilateral, unable to void, painful urination -hematuria Chief Complaints: Urinary Symptoms PMH: Hypertension, COPD/Asthma, Diabetes Mellitus Type 2 PMH Reviewed at 02/03/2025:46 Allergies Reviewed at 02/03/2025 13:46 Comments: 80 y.o female complains of Urinary Symptoms Patient's granddaughter calling reporting a weird sensation in her vagina . Granddaughter reports patient was seen at urgent care earlier today and she had a urine sample taken that was negative. Granddaughter states patient did not require catheterization for sample collection. Granddaughter states sensation has been bothering patient for a few weeks now, but states it is worse today. Granddaughter denies any reported fever or chills, denies hematuria or back pain. I provided information on the mobile health provider response time and advised the patient and/or caregiver to monitor reported signs and symptoms. I discussed the warning signs of when to seek emergency care -Loraine Nayak RN Cavity Pump Operator Organization Information for Alana Judd [employer]itter [employer] Business Legal Name: [employer]. Address: [address] [place] [id number], Hydraulic Elevator Constructor: Rm Davis MD CLIA No.: [id number] Cavity Pump Operator POC Test Results from [facility] Urine Dipstick (15:27:43) Urine leukocytes: 15+ISABEL Urine nitrites: +NIT Urine urobilinogen: 0.2URO Urine protein: 15+-PRO Urine pH: 5.0pH Urine blood: -BLO Urine specific gravity: 1.020SG Urine ketones: 5+-KET Urine bilirubin: 1+MINISTERIO Urine glucose: -GLU ..................... ..................... ..................... ..................... ..................... ..................... ............... Cavity Pump Operator Note From Warner Judd: SC1 sent to the above address for the pt with a possible UTI. Upon arrival the pts PVA, grand daughter stated they had just come back from the urgent care. The pt was advised to use Tylenol and a heating pad and increase fluid intake. The pt was sitting on her sofa in moderate distress with lower abdominal pain and pelvic pain. The pts granddaughter stated she also has a history of stones but they were never concerned because she could pass them easily. The pt was able to provide a clean sample for culture and also a dip. Dr Herrera was contacted and stated that we would follow the recommendation of the urgent care and send a culture as they did not. The pt was advised from Dr Herrera to take Tylenol and use the heating pad for relief. The warning signs were gone over, chest pain, severe shortness of breath, syncope, fever, altered mental status to call 911 or call us back. The pt understood these instructions. SC1 cleared the call. WRR. ..................... ..................... ..................... ..................... ..................... ..................... ............... [facility] [place] Consulted: Miranda Herrera ..................... ..................... ..................... ..................... ..................... ..................... ............... Disposition: Fulfilled Miranda Herrera MD [address] [facility],[address], [place], [address], JOHANN vitaMedMDRIAN JACOBS 02/03/2025 16:14:55 OBGyn Episode No OBEpisode recorded.
--- OUTSIDE RECORDS SUMMARY | 2025-05-21 12:48 | XMS_ITS | Encounter Summary ---
Author Organization [employer] Address [address] [facility] [address] [place] [address] Care Team Providers Care Hydraulic Punch Press Operator Name Role Phone Argelia Moore CNP Primary Care Provider [phone] Reason for Visit * Reason Onset Date Comments chart prep 05/19/2025 Encounter Details Date Type Department Care Team ([facility] st Contact Info) Description 05/19/2025 Telephone [facility] [address] [place], [place] [phone] Argelia Moore CNP [address] [place] [address] chart prep Social History Tobacco Use Types Packs/Day Years [...] encounter Miscellaneous Notes * Telephone Encounter - Negra Stone [place] - 05/19/2025 11:58 AM EST Chart Prep Labs: not applicable Images: not applicable Referrals: not applicable Vaccines due: Covid, Flu, PCV20, RSV, and Zoster Screenings: eye exam and foot exam Overdue care gaps: A1c and Glucose documented in this encounter Plan of Treatment Not on file documented as of this encounter Visit Diagnoses Not on filedocumented in this encounter Additional Health Concerns Assessment Noted Time PHQ-9 Depression Total Score: 0 07/17/19 25 8:36 AM EST documented as of this encounter Care Teams Hydraulic Punch Press Operator Relationship Specialty Start Date End Date Argelia Moore CNP [address] [place] [address] [place] [address] PCP - General Family Medicine 02/07/25 documented as of this encounter
--- OUTSIDE RECORDS SUMMARY | 2025-05-21 12:48 | XMS_ITS | Encounter Summary ---
Author Organization [employer] Address [address] [facility] [address] [place] [address] Care Team Providers Care Real Estate Assistant Name Role Phone Argelia Moore AYDE Primary Care Provider [phone] Encounter Details Date Type Department Care Team (Latest Contact Info) Description 05/21/2025 Travel Social History Tobacco Use Types Packs/Day Years [...] Time PHQ-9 Depression Total Score: 0 07/17/19 8:36 AM EST documented as of this encounter Care Teams Real Estate Assistant Relationship Specialty Start Date End Date Argelia Moore CNP [address] [place] [address] PCP - General Family Medicine 02/07/25 documented as of this encounter
--- OUTSIDE RECORDS SUMMARY | 2025-05-21 12:48 | XMS_ITS | Encounter Summary ---
Author Organization [employer] Address [address] [place] [address] [address] [place] [address] Care Team Providers Care Methods Specialist Name Role Phone Alisa Thakur MD Primary Care Provider [phone] Argelia Moore CNP Primary Care Provider [phone] Reason for Visit * Reason Comments Med Refill Encounter Details Date Type Department Care Team ([facility] st Contact Info) Description 09/27/2024 Refill [facility] PEDS [address] [place], [place] [phone] Alisa Thakur MD [address] [place] [address] Social History Tobacco Use Types Packs/Day Years [...] documented as of this encounter Care Teams Methods Specialist Relationship Specialty Start Date End Date Alisa Thakur MD [address] [place] [address] PCP - General Family Medicine 12/07/16 02/06/25 Argelia Moore CNP [address] [place] [address] PCP - General Family Medicine 02/07/25 documented as of this encounter
[2025-05-21 16:20] LABS: MANUAL DIFF FLAG NO
[2025-05-21 16:42] LABS: Hematocrit 38.6 % (37.0-47.0); Hemoglobin 12.4 g/dl (12.0-16.0); Imm Gran Abs Auto 0.03 X10*3/uL (0.00-0.03); Imm Gran Pct Auto 0.4 % (0.0-0.4); Lymphocytes Absolute Auto 1.9 X10*3/uL (1.2-4.9); Mean Corpuscular HGB Conc 32.1 g/dl (31.0-35.0); Mean Corpuscular Hemoglobin 29.7 pg (27.0-33.0); Mean Corpuscular Volume 92.6 fL (80.0-98.0); NRBC Abs Auto 0.000 X10*3/uL (0.0-0.012); NRBC Pct Auto 0.0 /100WBC (0.0-0.2); Platelet Count 239 X10*3/uL (160-400); Red Blood Count 4.17 X10*6/uL (4.20-5.50); White Blood Count 7.9 X10*3/uL (4.8-10.8)
[2025-05-21 17:35] LABS: Alanine Aminotransferase 14 U/L (0-31); Albumin Level 4.1 g/dL (3.5-5.0); Alkaline Phosphatase 65 U/L (39-117); Anion Gap 12 (12-20); Aspartate Amino Transferase 19 U/L (5-31); Blood Urea Nitrogen 11 mg/dL (9-16); Calcium 9.5 mg/dL (8.4-10.2); Carbon Dioxide 25 mmol/L (22-29); Chloride 104 mmol/L (96-108); Cholesterol 164 mg/dL (<200); Estimated Glomerular Filt Rate > 60; HDL Cholesterol 35 mg/dL (>40); Potassium 4.2 mmol/L (3.3-5.1); Sodium 137 mmol/L (135-145); Total Protein 7.4 g/dL (6.5-8.0); Triglycerides 326 mg/dL (<150)
[2025-05-21 17:37] LABS: Microalbum/Creatinine Ratio Ur 15.1 ug/mg cr (<30)
[2025-05-21 18:00] LABS: Folate 13.1 ng/mL (> or = 4.0); Vitamin B12 1163 pg/mL (200-900)
== END 2025-05-21 11:14 | disposition home or self-care (01) ==
LOC: HO.CHCLDS 11:13
DX: K13.0 Diseases of lips (principal); E11.9 Type 2 diabetes mellitus without complications
CPT/HCPCS: 36415; 80053; 80061; 82043; 82570; 82607; 82746; 85025